=== PATIENT | female | born 1970 | race American Indian/Alaskan Native ===

== ENCOUNTER 2017-01-30 02:56 | Inpatient (IN) | payer OTHER ==
[2017-01-30] MEDS ORDERED: LASIX IV ONE (03:08)
[2017-01-30 03:54] LABS: Mean Corpuscular HGB Conc 31 % (30-34); Mean Corpuscular Volume 75 fl (79-97); Platelet Count 610 K/mm3 (140-440); Red Blood Count 5.14 M/mm3 (3.65-5.03)
[2017-01-30] MEDS ORDERED: TRIDIL DRIP 50MG/250ML 50 MG/250 ML BOTTLE IV SCH (04:00)
[2017-01-30 04:06] LABS: INR 0.93 (0.87-1.13)
[2017-01-30 04:07] LABS: Partial Thromboplastin Time 26.9 Sec. (24.2-36.6)
[2017-01-30 04:15] LABS: Creatine Kinase MB 2.2 ng/mL (0.0-4.0)
[2017-01-30 04:17] LABS: Hematocrit 38.6 % (30.3-42.9); Hemoglobin 11.8 gm/dl (10.1-14.3); Mean Corpuscular Hemoglobin 23 pg (28-32); White Blood Count 20.3 K/mm3 (4.5-11.0)
[2017-01-30 04:18] LABS: Creatine Kinase 147 units/L (30-135)
[2017-01-30 04:21] LABS: Creatine Kinase MB 2.3 ng/mL (0.0-4.0)
[2017-01-30 04:24] LABS: Alanine Aminotransferase 12 units/L (7-56); Albumin 3.6 g/dL (3.9-5); Albumin/Globulin Ratio 0.9 %; Alkaline Phosphatase 96 units/L (35-129); Anion Gap 24 mmol/L; BUN/Creatinine Ratio 9.37; Blood Urea Nitrogen 15 mg/dL (7-17); Calcium 8.2 mg/dL (8.4-10.2); Carbon Dioxide 21 mmol/L (22-30); Chloride 95.9 mmol/L (98-107); Creatine Kinase 151 units/L (30-135); Glucose 393 mg/dL (65-100); Potassium 3.6 mmol/L (3.6-5.0); Sodium 137 mmol/L (137-145); Total Protein 7.6 g/dL (6.3-8.2)
[2017-01-30] MEDS ORDERED: ROCEPHIN/NS 1 GM/50 ML 1 GM/50 ML BAG IV ONE (04:33)
[2017-01-30] MEDS ORDERED: ZITHROMAX 500 MG in NACL 0.9% 250ML 250 ML IV ONE (04:33)
--- NOTE | 2017-01-30 04:40 | Emergency Department Report ---
ED Shortness of Breath HPI - General Chief Complaint: Dyspnea/Respdistress Stated Complaint: NATALI Time Seen by Provider: 01/30/17 03:08 Source: EMS, old records reviewed (no previous cardiac record for review) Mode of arrival: Stretcher Limitations: Physical Limitation - History of Present Illness Initial Comments: 46-year-old female with a past medical history hypertension presents to the hospital with acute respiratory distress. Patient is severely dyspneic and unable to provide any history of present illness. Janee at the bedside states that patient seemed to be fine throughout the day and shortness of breath acutely worsened at 1 AM. EMS provided some little oxygen and slight measure prior to evaluation. Patient complains of chest discomfort when questioned. No further history of present illness febrile at this time. No previous medical [facility] in [facility] available for review regarding previous cardiac history. Patient takes Lasix however, Janee denies history of CHF but states she had a similar episode to this in the past. - Related Data Home Medications Medication Instructions Recorded Confirmed Last Taken Carvedilol [Coreg] 25 mg PO BID 01/30/17 01/30/17 01/29/17 Furosemide [Lasix TAB] 40 mg PO QDAY 01/30/17 01/30/17 01/29/17 Ibuprofen [Motrin] 800 mg PO Q8HR PRN 01/30/17 01/30/17 01/29/17 cloNIDine [Catapres] 0.1 mg PO TID 01/30/17 01/30/17 01/29/17 Allergies Allergy/AdvReac Type Severity Reaction Status Date / Time No Known Drug Allergies Allergy Unknown Unknown Verified 01/30/17 03:40 ED Review of Systems ROS: Stated complaint: NATALI Other details as noted in HPI Comment: Unobtainable due to pts medical conditions ED Past Medical Hx - Past Medical History Previous Medical History?: Yes Hx Hypertension: Yes Hx COPD: Yes - Social History Smoking Status: Unknown if ever smoked - Medications Home Medications: Home Medications Medication Instructions Recorded Confirmed Last Taken Type Carvedilol [Coreg] 25 mg PO BID 01/30/17 01/30/17 01/29/17 History Furosemide [Lasix TAB] 40 mg PO QDAY 01/30/17 01/30/17 01/29/17 History Ibuprofen [Motrin] 800 mg PO Q8HR PRN 01/30/17 01/30/17 01/29/17 History cloNIDine [Catapres] 0.1 mg PO TID 01/30/17 01/30/17 01/29/17 History ED Physical Exam - General Limitations: Physical Limitation - Other Other exam information: General: Limited by acute respiratory distress Head exam: Atraumatic, normocephalic Eyes exam: Normal appearance ENT: Moist mucous membrane Neck exam: Normal inspection, full range of motion Respiratory exam: Bilateral rales, tachypnea, positive accessory muscle use Cardiovascular: Tachycardic regular rhythm Abdomen: Soft, nondistended, and nontender, with normal bowel sounds, no rebound, or guarding Extremity: Full range of motion normal inspection no deformity, no lower extremity edema Back: Normal Inspection, full range of motion, no tenderness Neurologic: Alert, oriented x3, cranial nerves intact, no motor or sensory deficit Psychiatric: normal affect, normal mood Skin: Diaphoretic ED Course Vital Signs 01/30/17 01/30/17 01/30/17 03:03 03:09 03:13 Temperature 97.1 F L 97.1 F L Pulse Rate 118 H 125 H 125 H Respiratory 29 H 28 H 28 H Rate Blood Pressure 202/132 228/144 Blood Pressure 228/144 [Left] O2 Sat by Pulse 98 92 92 Oximetry 01/30/17 04:11 Temperature Pulse Rate 105 H Respiratory 32 H Rate Blood Pressure Blood Pressure 145/93 [Left] O2 Sat by Pulse 95 Oximetry - Reevaluation(s) Reevaluation #1: 01/30/17 04:47 Patient placed on BiPAP upon arrival. Nitroglycerin initiated to improve blood pressure. Lasix 80 IV ordered. Patient is improving with ED treatment. Blood cultures Rocephin and azithromycin ordered given significant leukocytosis which can also be due to a stress reaction ED Medical Decision Making - Lab Data Result diagrams: 01/30/17 03:10 01/30/17 03:10 Lab Results 01/30/17 01/30/17 01/30/17 Range/Units 03:10 03:10 03:10 WBC 20.3 H (4.5-11.0) K/mm3 RBC 5.14 H (3.65-5.03) M/mm3 Hgb 11.8 (10.1-14.3) gm/dl Hct 38.6 (30.3-42.9) % MCV 75 L (79-97) fl MCH 23 L (28-32) pg MCHC 31 (30-34) % RDW 18.0 H (13.2-15.2) % Plt Count 610 H (140-440) K/mm3 Lymph # Do All Operator PT 12.4 (12.2-14.9) Sec. INR 0.93 (0.87-1.13) APTT 26.9 (24.2-36.6) Sec. Sodium (137-145) mmol/L Potassium (3.6-5.0) mmol/L Chloride (98-107) mmol/L Carbon Dioxide (22-30) mmol/L Anion Gap mmol/L BUN (7-17) mg/dL Creatinine (0.7-1.2) mg/dL Estimated GFR ml/min BUN/Creatinine Ratio % Glucose (65-100) mg/dL Calcium (8.4-10.2) mg/dL Total Bilirubin (0.1-1.2) mg/dL AST (5-40) units/L ALT (7-56) units/L Alkaline Phosphatase (35-129) units/L Total Creatine Kinase 147 H (30-135) units/L CK-MB (CK-2) 2.2 (0.0-4.0) ng/mL CK-MB (CK-2) Rel Index 1.4 (0-4) Troponin T < 0.010 (0.00-0.029) ng/mL NT-Pro-B Natriuret Pep (0-450) pg/mL Total Protein (6.3-8.2) g/dL Albumin (3.9-5) g/dL Albumin/Globulin Ratio % 01/30/17 Range/Units 03:10 WBC (4.5-11.0) K/mm3 RBC (3.65-5.03) M/mm3 Hgb (10.1-14.3) gm/dl Hct (30.3-42.9) % MCV (79-97) fl MCH (28-32) pg MCHC (30-34) % RDW (13.2-15.2) % Plt Count (140-440) K/mm3 Lymph # PT (12.2-14.9) Sec. INR (0.87-1.13) APTT (24.2-36.6) Sec. Sodium 137 (137-145) mmol/L Potassium 3.6 (3.6-5.0) mmol/L Chloride 95.9 L (98-107) mmol/L Carbon Dioxide 21 L (22-30) mmol/L Anion Gap 24 mmol/L BUN 15 (7-17) mg/dL Creatinine 1.6 H (0.7-1.2) mg/dL Estimated GFR 42 ml/min BUN/Creatinine Ratio 9.37 % Glucose 393 H (65-100) mg/dL Calcium 8.2 L (8.4-10.2) mg/dL Total Bilirubin 0.20 (0.1-1.2) mg/dL AST 20 (5-40) units/L ALT 12 (7-56) units/L Alkaline Phosphatase 96 (35-129) units/L Total Creatine Kinase 151 H (30-135) units/L CK-MB (CK-2) 2.3 (0.0-4.0) ng/mL CK-MB (CK-2) Rel Index 1.5 (0-4) Troponin T < 0.010 (0.00-0.029) ng/mL NT-Pro-B Natriuret Pep 847.2 H (0-450) pg/mL Total Protein 7.6 (6.3-8.2) g/dL Albumin 3.6 L (3.9-5) g/dL Albumin/Globulin Ratio 0.9 % - EKG Data -: EKG Interpreted by Me (sinus tach [address] abnormality) - EKG Data When compared to previous EKG there are: previous EKG unavailable - Radiology Data Radiology results: image reviewed (chest x-ray: Pulmonary edema) - Medical Decision Making No signs of ST elevation NV. Initial troponin is negative. Patient has clinical, laboratory, chest x-ray findings of pulmonary edema. Patient is improving with treatment including BiPAP. She requires hospital physician to the ICU for further treatment and support. - Differential Diagnosis pulmonary edema, pneumonia, CHF, asthma, bronchitis, NV, stable angina Critical Care Time: No Critical care attestation.: If time is entered above; I have spent that time in minutes in the direct care of this critically ill patient, excluding procedure time. ED Disposition Clinical Impression: Pulmonary edema, Respiratory distress, Leukocytosis, Hypertensive emergency, Renal insufficiency, Thrombocytosis Disposition: OP ADMITTED IP TO THIS HOSP Is pt being admited?: Yes Condition: Stable Time of Disposition: 04:43 (Dr Barker/hosp)
[2017-01-30 05:20] LABS: Basophils % (Manual) 0 % (0.0-1.8); Blastocytes % (Manual) 0 %
[2017-01-30 05:21] LABS: Anisocytosis 1+; Diff Status Complete; Elliptocytes Few; Hypochromasia 1+; Platelet Estimate Consistent w Auto
[2017-01-30] MEDS ORDERED: DULCOLAX PR PRN (05:34)
--- NOTE | 2017-01-30 05:39 | History and Physical Report ---
History of Present Illness Date of examination: 01/30/17 History of present illness: 46-year-old woman with history of hypertension, noncompliant with medication comes to this comes emergency room with acute onset of shortness of breath. Patient was found to be in respiratory distress, she arrived on BiPAP and was started on a nitroglycerin drip and given IV Lasix. Also complaining of chest pain in the epigastric area which she describes a pressure-like sensation, constant, intensity 6/10, no radiation, she cannot identify exacerbating or relieving factors. She denies nausea vomiting, diaphoresis or palpitation Patient denies cough, abdominal pain, hematochezia, dysuria, frequency, focal weakness, dysarthria, fever chills, polydipsia polyuria, hot or cold intolerance , easy bruisability, or rash or bleeding from mucosal membrane, rhinorrhea, epistaxis, earache, tinnitus, blurry vision, eye discharge, anxiety, depression. Other review of systems negative PAST SURGICAL HISTORY: Tubal ligation SOCIAL HISTORY: Denies alcohol, tobacco, drugs FAMILY HISTORY: Hypertension Medications and Allergies Allergies Allergy/AdvReac Type Severity Reaction Status Date / Time No Known Drug Allergies Allergy Unknown Unknown Verified 01/30/17 03:40 Home Medications Medication Instructions Recorded Confirmed Last Taken Type Carvedilol [Coreg] 25 mg PO BID 01/30/17 01/30/17 01/29/17 History Furosemide [Lasix TAB] 40 mg PO QDAY 01/30/17 01/30/17 01/29/17 History Ibuprofen [Motrin] 800 mg PO Q8HR PRN 01/30/17 01/30/17 01/29/17 History cloNIDine [Catapres] 0.1 mg PO TID 01/30/17 01/30/17 01/29/17 History Active Meds: Active Medications Nitroglycerin/Dextrose (Tridil Drip 50mg/250ml) 50 mg in 250 mls @ 3 mls/hr IV TITR MARIA EUGENIA; 10 MCG/MIN PRN Reason: Protocol Last Admin: 01/30/17 03:42 Dose: 10 mcg/min, 3 mls/hr Exam - Physical Exam Narrative exam: Gen. appearance: Patient lying in bed, no apparent distress HEENT: Normocephalic, atraumatic, pupils equally round and reactive to light, extraocular movement intact, and no sclericterus,. No JVD or thyromegaly or nodule,neck supple, no carotid bruit ,mucous membranes moist, no exudate or erythema Heart: S1, S2, regular rate and rhythm Lungs: Crackles bilaterally, breathing comfortable Abdomen: Positive bowel sounds, nontender, nondistended, no organomegaly Extremity: No edema, cyanosis, clubbing Skin: No rash, nodules, warm, dry Neuro: Oriented 3, cranial nerves II-12 intact, speech is fluent, motor and sensory intact - Constitutional Vitals: Temp Pulse Resp BP Pulse Ox 97.1 F L 99 H 28 H 132/92 97 01/30/17 03:13 01/30/17 04:50 01/30/17 04:50 01/30/17 04:50 01/30/17 04:50 Results - Labs CBC & Chem 7: 01/31/17 06:38 01/30/17 03:10 Labs: Abnormal lab results 01/30/17 01/30/17 01/30/17 Range/Units 03:10 03:10 03:10 WBC 20.3 H (4.5-11.0) K/mm3 RBC 5.14 H (3.65-5.03) M/mm3 MCV 75 L (79-97) fl MCH 23 L (28-32) pg RDW 18.0 H (13.2-15.2) % Plt Count 610 H (140-440) K/mm3 Monocytes % (Manual) 9.0 H (0.0-7.3) % Seg Neutrophils # Man 10.8 H (1.8-7.7) K/mm3 Monocytes # (Manual) 1.8 H (0.0-0.8) K/mm3 Eosinophils # (Manual) 0.8 H (0.0-0.4) K/mm3 Chloride 95.9 L (98-107) mmol/L Carbon Dioxide 21 L (22-30) mmol/L Creatinine 1.6 H (0.7-1.2) mg/dL Glucose 393 H (65-100) mg/dL Calcium 8.2 L (8.4-10.2) mg/dL Total Creatine Kinase 147 H 151 H (30-135) units/L NT-Pro-B Natriuret Pep 847.2 H (0-450) pg/mL Albumin 3.6 L (3.9-5) g/dL - Imaging and Cardiology EKG: image reviewed Chest x-ray: image reviewed Assessment and Plan Respiratory area distress CHF exacerbation, probably diastolic,new onset vs secondary to hypertension malignant Hypertension urgency malignant pneumonia Admits medicine Continue nitroglycerin drip, continue BiPAP Start IV Lasix, aspirin, check cardiac enzymes, echo, consult cardiology Hold beta kat, CARI inhibitor since patient on nitroglycerin drip Consult critical care, start DVT prophylaxis Start IV Levaquin Obtain stress test when respiratory status is stable
[2017-01-30] MEDS ORDERED: LEVAQUIN 750MG/150ML 750 MG/150 ML BAG IV SCH (06:00)
[2017-01-30] MEDS: LASIX IV SCH ×2 (06:03→17:54)
[2017-01-30 06:32] LABS: Creatine Kinase MB 3.9 ng/mL (0.0-4.0)
--- NOTE | 2017-01-30 07:09 | Admit Criteria Form ---
Admission Criteria Documentation: RESPIRATORY FAILURE GRG Clinical Indications for Admission to Inpatient Care (Place 'X' for any and all applicable criteria): Hospital admission is needed for appropriate care of the patient because of acute respiratory failure or insufficiency as indicated by ANY ONE of the following(1)(2)(3)(4)(5)(6)(7)(8): [X ]I. Mechanical ventilation needed (acute invasive or noninvasive) [ ]II. Severe ventilation deficit as indicated by ANY ONE of the following (9) [ ]a) Respiratory acidosis (pH less than 7.32 and partial pressure of carbon dioxide greater than 40 mm Hg (5.3 kPa)) [ ]b) Partial pressure of carbon dioxide greater than 44 mm Hg (5.9 kPa ) (new) [ ]c) Airflow measurements less than 25% of predicted (eg, peak expiratory flow rate less than 100 L/minute) [ ]d) Forced vital capacity less than 15 mL/kg of ideal body weight, or 50% decrease in vital capacity from baseline [ ]III. Noncardiac pulmonary edema not resolving with rapid emergency treatment (8) [ ]IV. Severe respiratory distress as indicated by ANY ONE of the following: [ ]a) Severe tachypnea (respiratory rate greater than 30, greater than 45 for 6-month-old, greater than 60 for ) [ ]b) Severe hypoxemia (partial pressure of oxygen less than 50 mm Hg ( 6.7 kPa) on greater than 50% oxygen or partial pressure of oxygen to FIO2 ratio less than 200) [ ]c) Mental status deterioration from respiratory disease [ ]V. Airway obstruction or inadequate protection [A](10)(11) The original [employer] content created by [employer] has been revised. The portions of the content which have been revised are identified through the use of italic text or in bold, and [employer] has neither reviewed nor approved the modified material. All other unmodified content is copyright [employer]. Please see references footnoted in the original [employer] edition 2016 Admission Criteria Met: Yes
--- NOTE | 2017-01-30 07:29 | XRay Report ---
Single view chest: History: Shortness of breath. Findings: Heart size upper limit of normal. Borderline cardiomegaly cannot be excluded. Trachea is midline. Bilateral airspace opacities. Normal CP angles. Impression: Pulmonary edema or bilateral diffuse pneumonia
--- NOTE | 2017-01-30 08:40 | Event Note ---
Date: 01/30/17 46-year-old female patient with significant past medical history of hypertension noncompliant with medications was admitted through emergency room this morning with the worsening shortness of breath, acute respiratory failure requiring BiPAP Patient was noted to have malignant hypertension, started on Tridil drip which was later discontinued Patient had mild elevation of troponins, cardiology evaluated the patient, started on heparin drip Multiple antihypertensives were added Medical records reviewed Agree with the current plan Patient's condition treatment plan discussed in detail with the patient and multiple family members at the bedside as well as the nurse Consults and recommendations noted and appreciated
[2017-01-30] MEDS ORDERED: APRESOLINE IV PRN (09:01)
[2017-01-30] MEDS ORDERED: APRESOLINE PO ONE (09:01)
[2017-01-30] MEDS: ASPIRIN PO SCH (09:30)
[2017-01-30] MEDS ORDERED: LOPRESSOR ONE (09:32)
[2017-01-30] MEDS ORDERED: LOVENOX SUB-Q SCH (10:00)
[2017-01-30] MEDS ORDERED: LOPRESSOR PO SCH (10:00)
--- NOTE | 2017-01-30 10:29 | Event Note ---
Date: 01/30/17 Cardiology no dictated #1. Congestive heart failure #2 leukocytosis and elevated troponins #3 uncontrolled hypertension #4 respiratory failure on BiPAP #5 noncompliance Patient will be monitored and followed closely Thank you Dr. JOSE ALFREDO Martínez
[2017-01-30] MEDS ORDERED: HEPARIN/ 0.45% NACL-25,000 UNIT/500 ML 25,000 UNIT/500 ML BAG IV SCH (13:00)
[2017-01-30] MEDS: CATAPRES PO SCH ×2 (14:54→20:36)
[2017-01-30] MEDS: APRESOLINE PO SCH ×2 (14:54→22:04)
[2017-01-30 14:56] LABS: Creatine Kinase MB 4.7 ng/mL (0.0-4.0)
[2017-01-30 17:34] LABS: Hematocrit 33.7 % (30.3-42.9); Hemoglobin 10.5 gm/dl (10.1-14.3)
[2017-01-30] MEDS: ZOFRAN IV PRN (17:55)
[2017-01-30 18:19] LABS: INR 1.02 (0.87-1.13)
[2017-01-30 18:20] LABS: Partial Thromboplastin Time 32.8 Sec. (24.2-36.6)
[2017-01-30] MEDS: TYLENOL PO PRN (20:36)
[2017-01-30] MEDS: COREG PO SCH (22:04)
--- NOTE | 2017-01-31 00:05 | Consultation ---
CARDIOLOGY CONSULTATION AGE: 46 REFERRING PHYSICIAN: Mercedes Melendez MD HISTORY OF PRESENT ILLNESS: The patient is a 46-year-old female who is known to have hypertension and has been noncompliant with medications, came to the Emergency Room with acute shortness of breath. Apparently for the last 3-4 days, she has been getting worse and yesterday, this was much worse and hence she came to the Emergency Room. The patient was given BiPAP, oxygen and has been placed on nitroglycerin drip. The patient received IV Lasix. This morning, she feels some better. She is still on BiPAP at this time and difficult to communicate with her. The patient at present denies any chest pain. About a year ago, she had a similar episode. The patient denies history of smoking or excessive alcohol consumption or drug consumption. REVIEW OF SYSTEMS: Difficult to obtain. HEAD, EYES, EARS, NOSE, AND THROAT: No symptoms. ENDOCRINE: No history of diabetes. GASTROINTESTINAL: No abdominal pain, nausea, or vomiting. Bowel habits have been regular. No history of peptic ulcer disease. GENITOURINARY: No symptoms. CENTRAL NERVOUS SYSTEM: No symptoms. PERSONAL HISTORY: Nonsmoker, nonalcoholic. PHYSICAL EXAMINATION: GENERAL: Adult female appears to be comfortable at this time. VITAL SIGNS: Blood pressure is 170/115. HEENT: The patient has a BiPAP mask. NECK: Supple. No thyromegaly. Both carotids are palpable and equal. No bruits. CHEST: Symmetrical, bilateral basilar rales are present. CARDIOVASCULAR: S1 and S2 are heard well. No significant murmurs are appreciated. ABDOMEN: Soft, nontender. EXTREMITIES: No calf tenderness. LABORATORY DATA: EKG: Sinus tachycardia, left ventricular hypertrophy with nonspecific ST abnormalities. Chest x-ray: Congestive heart failure. WBC 20.3, hemoglobin 11.8, hematocrit 38.6. Sodium 137, potassium 3.6, BUN 15, creatinine 1.6, troponin 0.010, and 0.139. Total cholesterol 214, LDL 126. IMPRESSION: 1. Congestive heart failure. 2. Severe uncontrolled hypertension. 3. Abnormal troponins. The patient denies any chest pain at this time even though she may have reported chest discomfort earlier. 4. Medication noncompliance. The patient is seen for cardiac evaluation. The patient seems to be responding to the treatment except the blood pressure is still not controlled. Additional hydralazine and metoprolol were given. The patient will be monitored and followed closely with you. Leukocytosis is also bothersome. Etiology of this is uncertain. Thank you, Dr. Melendez for allowing me to participate in the care of this patient. Continue current management. JOB# [id number] KB/NTS
[2017-01-31] MEDS: APRESOLINE PO SCH ×3 (06:11→22:13)
[2017-01-31] MEDS: LASIX IV SCH (06:12)
[2017-01-31 06:56] LABS: Hematocrit 30.6 % (30.3-42.9); Hemoglobin 9.6 gm/dl (10.1-14.3); Mean Corpuscular HGB Conc 31 % (30-34); Mean Corpuscular Volume 73 fl (79-97); Platelet Count 368 K/mm3 (140-440); Red Blood Count 4.17 M/mm3 (3.65-5.03); Red Cell Distribution Width 18.6 % (13.2-15.2)
[2017-01-31 06:58] LABS: Mean Corpuscular Hemoglobin 23 pg (28-32); White Blood Count 26.5 K/mm3 (4.5-11.0)
[2017-01-31 07:15] LABS: BUN/Creatinine Ratio 11.17; Calcium 8.3 mg/dL (8.4-10.2); Chloride 96.5 mmol/L (98-107); Potassium 3.3 mmol/L (3.6-5.0)
[2017-01-31 08:26] LABS: Anisocytosis 1+; Blastocytes % (Manual) 0 %; Burr Cells Few; Diff Status Complete; Elliptocytes Few; Hypochromasia 1+; Ovalocytes Few; Platelet Estimate Consistent w Auto
[2017-01-31] MEDS ORDERED: LEVAQUIN 750MG/150ML 750 MG/150 ML BAG IV SCH (10:00)
[2017-01-31] MEDS ORDERED: LASIX PO SCH (10:00)
--- NOTE | 2017-01-31 11:01 | Progress Note ---
Hospitalist Physical - Constitutional Vitals: Temp Pulse Resp BP Pulse Ox 98.1 F 82 16 139/83 99 01/31/17 10:14 01/31/17 10:14 01/31/17 10:14 01/31/17 10:14 01/31/17 10:14 Results - Labs CBC & Chem 7: 01/31/17 06:38 01/31/17 06:38 Labs: Laboratory Last Values WBC 26.5 K/mm3 (4.5-11.0) H 01/31/17 06:38 RBC 4.17 M/mm3 (3.65-5.03) 01/31/17 06:38 Hgb 9.6 gm/dl (10.1-14.3) L 01/31/17 06:38 Hct 30.6 % (30.3-42.9) 01/31/17 06:38 MCV 73 fl (79-97) L 01/31/17 06:38 MCH 23 pg (28-32) L 01/31/17 06:38 MCHC 31 % (30-34) 01/31/17 06:38 RDW 18.6 % (13.2-15.2) H 01/31/17 06:38 Plt Count 368 K/mm3 (140-440) 01/31/17 06:38 Lymph # Brand Communications Manager 01/30/17 03:10 Add Manual Diff Complete 01/31/17 06:38 Total Counted 100 01/31/17 06:38 Seg Neuts % (Manual) 73.0 % (40.0-70.0) H 01/31/17 06:38 Band Neutrophils % 7.0 % 01/31/17 06:38 Lymphocytes % (Manual) 12.0 % (13.4-35.0) L 01/31/17 06:38 Reactive Lymphs % (Man) 0 % 01/31/17 06:38 Monocytes % (Manual) 7.0 % (0.0-7.3) 01/31/17 06:38 Eosinophils % (Manual) 4.0 % (0.0-4.3) 01/30/17 03:10 Basophils % (Manual) 0 % (0.0-1.8) 01/30/17 03:10 Metamyelocytes % 1.0 % 01/31/17 06:38 Myelocytes % 0 % 01/31/17 06:38 Promyelocytes % 0 % 01/31/17 06:38 Blast Cells % 0 % 01/31/17 06:38 Nucleated RBC % Not Reportable 01/31/17 06:38 Seg Neutrophils # Man 19.3 K/mm3 (1.8-7.7) H 01/31/17 06:38 Band Neutrophils # 1.9 K/mm3 01/31/17 06:38 Lymphocytes # (Manual) 3.2 K/mm3 (1.2-5.4) 01/31/17 06:38 Abs React Lymphs (Man) 0.0 K/mm3 01/31/17 06:38 Monocytes # (Manual) 1.9 K/mm3 (0.0-0.8) H 01/31/17 06:38 Eosinophils # (Manual) 0.0 K/mm3 (0.0-0.4) 01/31/17 06:38 Basophils # (Manual) 0.0 K/mm3 (0.0-0.1) 01/31/17 06:38 Metamyelocytes # 0.3 K/mm3 01/31/17 06:38 Myelocytes # 0.0 K/mm3 01/31/17 06:38 Promyelocytes # 0.0 K/mm3 01/31/17 06:38 Blast Cells # 0.0 K/mm3 01/31/17 06:38 WBC Morphology Not Reportable 01/31/17 06:38 Hypersegmented Neuts Not Reportable 01/31/17 06:38 Hyposegmented Neuts Not Reportable 01/31/17 06:38 Hypogranular Neuts Not Reportable 01/31/17 06:38 Smudge Cells Not Reportable 01/31/17 06:38 Toxic Granulation Not Reportable 01/31/17 06:38 Toxic Vacuolation Not Reportable 01/31/17 06:38 Dohle Bodies Not Reportable 01/31/17 06:38 Pelger-Huet Anomaly Not Reportable 01/31/17 06:38 Doreen Rods Not Reportable 01/31/17 06:38 Platelet Estimate Consistent w auto 01/31/17 06:38 Clumped Platelets Not Reportable 01/31/17 06:38 Plt Clumps, EDTA Not Reportable 01/31/17 06:38 Large Platelets Not Reportable 01/31/17 06:38 Giant Platelets Not Reportable 01/31/17 06:38 Platelet Satelliting Not Reportable 01/31/17 06:38 Plt Morphology Comment Not Reportable 01/31/17 06:38 RBC Morphology Not Reportable 01/31/17 06:38 Dimorphic RBCs Not Reportable 01/31/17 06:38 Polychromasia Not Reportable 01/31/17 06:38 Hypochromasia 1+ 01/31/17 06:38 Poikilocytosis Not Reportable 01/31/17 06:38 Anisocytosis 1+ 01/31/17 06:38 Microcytosis Not Reportable 01/31/17 06:38 Macrocytosis Not Reportable 01/31/17 06:38 Spherocytes Not Reportable 01/31/17 06:38 Pappenheimer Bodies Not Reportable 01/31/17 06:38 Sickle Cells Not Reportable 01/31/17 06:38 Target Cells Not Reportable 01/31/17 06:38 Tear Drop Cells Not Reportable 01/31/17 06:38 Ovalocytes Few 01/31/17 06:38 Helmet Cells Not Reportable 01/31/17 06:38 [place] Bodies Not Reportable 01/31/17 06:38 [place] Rings Not Reportable 01/31/17 06:38 [place] Cells Few 01/31/17 06:38 Bite Cells Not Reportable 01/31/17 06:38 Crenated Cell Not Reportable 01/31/17 06:38 Elliptocytes Few 01/31/17 06:38 Acanthocytes (Spur) Not Reportable 01/31/17 06:38 Rouleaux Not Reportable 01/31/17 06:38 Hemoglobin C Crystals Not Reportable 01/31/17 06:38 Schistocytes Not Reportable 01/31/17 06:38 Malaria parasites Not Reportable 01/31/17 06:38 Franky Bodies Not Reportable 01/31/17 06:38 Hem Pathologist Commnt No 01/31/17 06:38 PT 13.3 Sec. (12.2-14.9) 01/30/17 13:31 INR 1.02 (0.87-1.13) 01/30/17 13:31 APTT 32.8 Sec. (24.2-36.6) 01/30/17 13:31 Heparin Anti-Xa Level 0.47 U.I./ml (0.3-0.7) 01/30/17 21:42 Sodium 139 mmol/L (137-145) 01/31/17 06:38 Potassium 3.3 mmol/L (3.6-5.0) L 01/31/17 06:38 Chloride 96.5 mmol/L (98-107) L 01/31/17 06:38 Carbon Dioxide 21 mmol/L (22-30) L 01/31/17 06:38 Anion Gap 25 mmol/L 01/31/17 06:38 BUN 38 mg/dL (7-17) H 01/31/17 06:38 Creatinine 3.4 mg/dL (0.7-1.2) H D 01/31/17 06:38 Estimated GFR 18 ml/min 01/31/17 06:38 BUN/Creatinine Ratio 11.17 % 01/31/17 06:38 Glucose 127 mg/dL (65-100) H 01/31/17 06:38 Calcium 8.3 mg/dL (8.4-10.2) L 01/31/17 06:38 Total Bilirubin 0.20 mg/dL (0.1-1.2) 01/30/17 03:10 AST 20 units/L (5-40) 01/30/17 03:10 ALT 12 units/L (7-56) 01/30/17 03:10 Alkaline Phosphatase 96 units/L (35-129) 01/30/17 03:10 Total Creatine Kinase 160 units/L (30-135) H 01/30/17 13:31 CK-MB (CK-2) 4.7 ng/mL (0.0-4.0) H 01/30/17 13:31 CK-MB (CK-2) Rel Index 2.9 (0-4) 01/30/17 13:31 Troponin T 0.080 ng/mL (0.00-0.029) H D 01/30/17 13:31 NT-Pro-B Natriuret Pep 847.2 pg/mL (0-450) H 01/30/17 03:10 Total Protein 7.6 g/dL (6.3-8.2) 01/30/17 03:10 Albumin 3.6 g/dL (3.9-5) L 01/30/17 03:10 Albumin/Globulin Ratio 0.9 % 01/30/17 03:10 Triglycerides 242 mg/dL (2-149) H 01/30/17 05:59 Cholesterol 214 mg/dL (50-199) H 01/30/17 05:59 LDL Cholesterol Direct 126 mg/dL (50-130) 01/30/17 05:59 HDL Cholesterol 40 mg/dL (40-59) 01/30/17 05:59 Cholesterol/HDL Ratio 5.35 % 01/30/17 05:59
--- NOTE | 2017-01-31 12:04 | Progress Note ---
Assessment and Plan 46yo aaf: 1. flash pulm edema due to hypertensive crisis * now improved 2. mildly elevated trop w/ nl ck * likely due to #1 3. nichole * likely due to #1 4. mild to mod mitral regurgitation rec: hold lasix gentle ivf cont asa agree with nephrology consult cont iv heparin for now but I don't believe this is consistent with acs tte reviewed d/w with pt and primary md - Patient Problems (1) Hypertensive emergency Current Visit: Yes Status: Acute (2) Pulmonary edema Current Visit: Yes Status: Acute Qualifiers: Chronicity: C (3) Renal insufficiency Current Visit: Yes Status: Acute Subjective Date of service: 01/31/17 Interval history: feels much better, no sob/cp Objective Vital Signs Temp Pulse Pulse Pulse Resp Resp BP 01/31/17 10:14 98.1 F 82 16 01/31/17 09:16 89 01/31/17 06:11 91 H 106/75 01/31/17 05:27 98.0 F 91 H 20 01/31/17 00:42 98.3 F 91 H 20 01/30/17 23:27 82 18 01/30/17 22:04 90 146/82 01/30/17 21:36 20 01/30/17 20:52 80 20 01/30/17 20:50 20 01/30/17 20:36 98.1 F 95 H 97 H 20 173/91 01/30/17 19:17 90 01/30/17 16:30 98.0 F 99 H 20 01/30/17 12:36 BP BP Pulse Ox 01/31/17 10:14 139/83 99 01/31/17 09:16 01/31/17 06:11 01/31/17 05:27 106/75 100 01/31/17 00:42 136/85 100 01/30/17 23:27 99 01/30/17 22:04 01/30/17 21:36 01/30/17 20:52 99 01/30/17 20:50 01/30/17 20:36 173/92 20 L 01/30/17 19:17 01/30/17 16:30 162/93 99 01/30/17 12:36 100 - Labs and Meds Cardiac Enzymes 01/30/17 Range/Units 13:31 CK-MB (CK-2) 4.7 H (0.0-4.0) ng/mL Coagulation 01/30/17 Range/Units 13:31 PT 13.3 (12.2-14.9) Sec. INR 1.02 (0.87-1.13) APTT 32.8 (24.2-36.6) Sec. CBC 01/30/17 01/31/17 Range/Units 13:31 06:38 WBC 26.5 H (4.5-11.0) K/mm3 RBC 4.17 (3.65-5.03) M/mm3 Hgb 10.5 9.6 L (10.1-14.3) gm/dl Hct 33.7 30.6 (30.3-42.9) % Plt Count 393 368 (140-440) K/mm3 Comprehensive Metabolic Panel 01/31/17 Range/Units 06:38 Sodium 139 (137-145) mmol/L Potassium 3.3 L (3.6-5.0) mmol/L Chloride 96.5 L (98-107) mmol/L Carbon Dioxide 21 L (22-30) mmol/L BUN 38 H (7-17) mg/dL Creatinine 3.4 H D (0.7-1.2) mg/dL Glucose 127 H (65-100) mg/dL Calcium 8.3 L (8.4-10.2) mg/dL - Imaging and Cardiology EKG: image reviewed
[2017-01-31] MEDS: CATAPRES PO SCH ×3 (12:16→20:28)
[2017-01-31] MEDS: COREG PO SCH ×2 (12:16→22:13)
[2017-01-31] MEDS: ASPIRIN PO SCH (12:16)
[2017-01-31] MEDS: TYLENOL PO PRN (12:28)
[2017-01-31] MEDS ORDERED: NACL 0.9% 1000 ML 1,000 ML IV SCH (13:00)
--- NOTE | 2017-01-31 13:13 | Consultation ---
History of Present Illness - Reason for Consult Consult date: 01/31/17 acute renal failure Requesting physician: RU TOLEDO - History of Present Illness This is a 46yo AAF with history of hypertension diagnosed more than 15 years ago , noncompliant with medication who initially presented to ER with acute onset of shortness of breath. Patient was found to be in respiratory distress, she arrived on BiPAP and was started on a nitroglycerin drip and given IV Lasix. Pt was found to be in hypertensive emergency with BP >220/110mmHg and was initially started on Tridil drip which was later discontinued. currently with improved BP on oral meds. Patient also had mild elevation of troponins, cardiology evaluated the patient, started on heparin drip. initial Cr was 1.6mg/ dl on admission, no previous labs available, however renal function is worsening with Cr up to 3.4mg/dl, renal consult requested for management of SABRA. Pt denies fever, chills, nausea, vomiting, diarrhea, dysuria, recent NSADIs use , IV contrast exposure, Past History Past Medical History: hypertension Past Surgical History: No surgical history Social history: no significant social history Family history: diabetes (mother ), hypertension (father) Medications and Allergies Allergies Allergy/AdvReac Type Severity Reaction Status Date / Time No Known Drug Allergies Allergy Unknown Unknown Verified 01/30/17 03:40 Home Medications Medication Instructions Recorded Confirmed Last Taken Type Carvedilol [Coreg] 25 mg PO BID 01/30/17 01/30/17 01/29/17 History Furosemide [Lasix TAB] 40 mg PO QDAY 01/30/17 01/30/17 01/29/17 History Ibuprofen [Motrin] 800 mg PO Q8HR PRN 01/30/17 01/30/17 01/29/17 History cloNIDine [Catapres] 0.1 mg PO TID 01/30/17 01/30/17 01/29/17 History Active Meds: Active Medications Acetaminophen (Tylenol) 650 mg PO Q4H PRN PRN Reason: Pain MILD(1-3)/Fever >100.5/GARCIAS Last Admin: 01/31/17 12:28 Dose: 650 mg Aspirin (Aspirin) 325 mg PO QDAY MARIA EUGENIA Last Admin: 01/31/17 12:16 Dose: 325 mg Bisacodyl (Dulcolax) 10 mg [place] QDAY PRN PRN Reason: Constipation unrelieved by MOM Carvedilol (Coreg) 25 mg PO BID [facility] Last Admin: 01/31/17 12:16 Dose: 25 mg Clonidine HCl (Catapres) 0.1 mg PO TID [facility] Last Admin: 01/31/17 12:16 Dose: 0.1 mg Hydralazine HCl (Apresoline) 10 mg IV Q4HR PRN PRN Reason: Hypertension Last Admin: 01/30/17 11:33 Dose: 10 mg Hydralazine HCl (Apresoline) 25 mg PO Q8HR [facility] Last Admin: 01/31/17 06:11 Dose: 25 mg Nitroglycerin/Dextrose (Tridil Drip 50mg/250ml) 50 mg in 250 mls @ 3 mls/hr IV TITR MARIA EUGENIA; 10 MCG/MIN PRN Reason: Protocol Last Admin: 01/30/17 03:42 Dose: 10 mcg/min, 3 mls/hr Levofloxacin/Dextrose (Levaquin 750mg/150ml) 750 mg in 150 mls @ 100 mls/hr IV Q24HR [facility] Last Admin: 01/31/17 12:17 Dose: 100 mls/hr Heparin Sodium/Sodium Chloride (Heparin/ 0.45% Nacl-25,000 Unit/500 Ml) 25,000 unit in 500 mls @ 20 mls/hr IV TITRATE MARIA EUGENIA; 1,000 UNITS/HR PRN Reason: Protocol Last Titration: 01/30/17 22:00 Dose: 1,000 units/hr, 20 mls/hr Sodium Chloride (Nacl 0.9% 1000 Ml) 1,000 mls @ 42 mls/hr IV DIRECT MARIA EUGENIA Ondansetron HCl (Zofran) 4 mg IV Q8H PRN PRN Reason: N/V unrelieved by Reglan Last Admin: 01/30/17 17:55 Dose: 4 mg Exam - Vital Signs Vital signs: Vital Signs Pulse Ox 92 01/30/17 02:56 - General Appearance General appearance: well-developed, well-nourished, appears stated age EENT: ATNC, PERRL, mucous membranes moist Neck: Present: neck supple Respiratory: Clear to Ascultation Heart: regular, S1S2 Gastrointestinal: Present: normal, normoactive bowel sounds Integumentary: no rash, other (trace edema ) Neurologic: no focal deficit, alert and oriented x3, strength 5/5, CN 3-12 intact Psychiatric: mood/affect appropriate, cooperative Results - Lab Results 01/31/17 06:38 01/31/17 06:38 Most recent lab results Calcium 8.3 mg/dL (8.4-10.2) L 01/31/17 06:38 Assessment and Plan - Patient Problems (1) Acute kidney failure Current Visit: Yes Status: Acute Qualifiers: Acute renal failure type: A Plan to address problem: most likely due to prerenal azotemia in the setting of IV diuresis. hold lasix for now, since volume status improved. gentle IV NS at 42ml/hr started. check UA, urine lytes, protein/cr ratio avoid nephrotoxins, NSAIDs, IV contrast will monitor electrolytes/renal parameters and make further recommendations pt remains non-oliguric, no acute indications for HD at present (2) Hypertensive emergency Current Visit: Yes Status: Acute Plan to address problem: BP improved on current meds (3) Pulmonary edema Current Visit: Yes Status: Acute Qualifiers: Chronicity: C Plan to address problem: improved with IV diuresis and improved BP
--- NOTE | 2017-01-31 16:09 | Progress Note ---
Assessment and Plan Assessment and plan: --Malignant hypertension Blood pressures moderate control, continue current antihypertensives and when necessary medications --Acute kidney injury Probably secondary to vasomotor nephropathy, prerenal azotemia Hold Lasix, gentle hydration, closely monitor renal function, avoid nephrotoxic medication Nephrology evaluation for assistance with management --Mild elevation of cardiac troponins Coronary artery disease, cardiology following, continue heparin drip, follow echocardiogram Aspirin beta blockers and nitroglycerin and pain medications --Pulmonary edema On IV Lasix, hold in view of acute kidney injury, closely monitor --Diastolic congestive heart failure Continue beta blockers, hold Lasix --DVT prophylaxis; patient is already on heparin drip Closely monitor the patient and adjust management as needed Patient's condition treatment plan discussed in detail with the patient as well as the family member at the bedside Consults and recommendations noted and appreciated History Interval history: Patient feels slightly better Blood pressures reasonable control, however creatinine significantly increased Denies chest pain or shortness of breath Alert awake oriented 3 not in acute distress Vital signs reviewed Hospitalist Physical - Constitutional Vitals: Temp Pulse Resp BP Pulse Ox 98.1 F 82 16 139/83 99 01/31/17 10:14 01/31/17 10:14 01/31/17 10:14 01/31/17 10:14 01/31/17 10:14 General appearance: Present: no acute distress, well-nourished - EENT Eyes: Present: PERRL, EOM intact - Neck Neck: Present: supple, normal ROM - Respiratory Respiratory effort: normal Respiratory: bilateral: diminished, rales, negative: rhonchi, wheezing - Cardiovascular Rhythm: regular Heart Sounds: Present: S1 & S2 - Extremities Extremities: no ischemia, pulses intact, pulses symmetrical Extremity abnormal: edema (trace edema) Peripheral Pulses: within normal limits - Abdominal General gastrointestinal: soft, non-tender, non-distended, normal bowel sounds - Integumentary Integumentary: Present: clear, warm - Psychiatric Psychiatric: appropriate mood/affect, cooperative - Neurologic Neurologic: CNII-XII intact, moves all extremities Results - Labs CBC & Chem 7: 01/31/17 06:38 01/31/17 06:38 Labs: Laboratory Last Values WBC 26.5 K/mm3 (4.5-11.0) H 01/31/17 06:38 RBC 4.17 M/mm3 (3.65-5.03) 01/31/17 06:38 Hgb 9.6 gm/dl (10.1-14.3) L 01/31/17 06:38 Hct 30.6 % (30.3-42.9) 01/31/17 06:38 MCV 73 fl (79-97) L 01/31/17 06:38 MCH 23 pg (28-32) L 01/31/17 06:38 MCHC 31 % (30-34) 01/31/17 06:38 RDW 18.6 % (13.2-15.2) H 01/31/17 06:38 Plt Count 368 K/mm3 (140-440) 01/31/17 06:38 Lymph # Glass Enamel Mixer 01/30/17 03:10 Add Manual Diff Complete 01/31/17 06:38 Total Counted 100 01/31/17 06:38 Seg Neuts % (Manual) 73.0 % (40.0-70.0) H 01/31/17 06:38 Band Neutrophils % 7.0 % 01/31/17 06:38 Lymphocytes % (Manual) 12.0 % (13.4-35.0) L 01/31/17 06:38 Reactive Lymphs % (Man) 0 % 01/31/17 06:38 Monocytes % (Manual) 7.0 % (0.0-7.3) 01/31/17 06:38 Eosinophils % (Manual) 4.0 % (0.0-4.3) 01/30/17 03:10 Basophils % (Manual) 0 % (0.0-1.8) 01/30/17 03:10 Metamyelocytes % 1.0 % 01/31/17 06:38 Myelocytes % 0 % 01/31/17 06:38 Promyelocytes % 0 % 01/31/17 06:38 Blast Cells % 0 % 01/31/17 06:38 Nucleated RBC % Not Reportable 01/31/17 06:38 Seg Neutrophils # Man 19.3 K/mm3 (1.8-7.7) H 01/31/17 06:38 Band Neutrophils # 1.9 K/mm3 01/31/17 06:38 Lymphocytes # (Manual) 3.2 K/mm3 (1.2-5.4) 01/31/17 06:38 Abs React Lymphs (Man) 0.0 K/mm3 01/31/17 06:38 Monocytes # (Manual) 1.9 K/mm3 (0.0-0.8) H 01/31/17 06:38 Eosinophils # (Manual) 0.0 K/mm3 (0.0-0.4) 01/31/17 06:38 Basophils # (Manual) 0.0 K/mm3 (0.0-0.1) 01/31/17 06:38 Metamyelocytes # 0.3 K/mm3 01/31/17 06:38 Myelocytes # 0.0 K/mm3 01/31/17 06:38 Promyelocytes # 0.0 K/mm3 01/31/17 06:38 Blast Cells # 0.0 K/mm3 01/31/17 06:38 WBC Morphology Not Reportable 01/31/17 06:38 Hypersegmented Neuts Not Reportable 01/31/17 06:38 Hyposegmented Neuts Not Reportable 01/31/17 06:38 Hypogranular Neuts Not Reportable 01/31/17 06:38 Smudge Cells Not Reportable 01/31/17 06:38 Toxic Granulation Not Reportable 01/31/17 06:38 Toxic Vacuolation Not Reportable 01/31/17 06:38 Dohle Bodies Not Reportable 01/31/17 06:38 Pelger-Huet Anomaly Not Reportable 01/31/17 06:38 Doreen Rods Not Reportable 01/31/17 06:38 Platelet Estimate Consistent w auto 01/31/17 06:38 Clumped Platelets Not Reportable 01/31/17 06:38 Plt Clumps, EDTA Not Reportable 01/31/17 06:38 Large Platelets Not Reportable 01/31/17 06:38 Giant Platelets Not Reportable 01/31/17 06:38 Platelet Satelliting Not Reportable 01/31/17 06:38 Plt Morphology Comment Not Reportable 01/31/17 06:38 RBC Morphology Not Reportable 01/31/17 06:38 Dimorphic RBCs Not Reportable 01/31/17 06:38 Polychromasia Not Reportable 01/31/17 06:38 Hypochromasia 1+ 01/31/17 06:38 Poikilocytosis Not Reportable 01/31/17 06:38 Anisocytosis 1+ 01/31/17 06:38 Microcytosis Not Reportable 01/31/17 06:38 Macrocytosis Not Reportable 01/31/17 06:38 Spherocytes Not Reportable 01/31/17 06:38 Pappenheimer Bodies Not Reportable 01/31/17 06:38 Sickle Cells Not Reportable 01/31/17 06:38 Target Cells Not Reportable 01/31/17 06:38 Tear Drop Cells Not Reportable 01/31/17 06:38 Ovalocytes Few 01/31/17 06:38 Helmet Cells Not Reportable 01/31/17 06:38 [place] Bodies Not Reportable 01/31/17 06:38 [place] Rings Not Reportable 01/31/17 06:38 [place] Cells Few 01/31/17 06:38 Bite Cells Not Reportable 01/31/17 06:38 Crenated Cell Not Reportable 01/31/17 06:38 Elliptocytes Few 01/31/17 06:38 Acanthocytes (Spur) Not Reportable 01/31/17 06:38 Rouleaux Not Reportable 01/31/17 06:38 Hemoglobin C Crystals Not Reportable 01/31/17 06:38 Schistocytes Not Reportable 01/31/17 06:38 Malaria parasites Not Reportable 01/31/17 06:38 Franky Bodies Not Reportable 01/31/17 06:38 Hem Pathologist Commnt No 01/31/17 06:38 PT 13.3 Sec. (12.2-14.9) 01/30/17 13:31 INR 1.02 (0.87-1.13) 01/30/17 13:31 APTT 32.8 Sec. (24.2-36.6) 01/30/17 13:31 Heparin Anti-Xa Level 0.47 U.I./ml (0.3-0.7) 01/30/17 21:42 Sodium 139 mmol/L (137-145) 01/31/17 06:38 Potassium 3.3 mmol/L (3.6-5.0) L 01/31/17 06:38 Chloride 96.5 mmol/L (98-107) L 01/31/17 06:38 Carbon Dioxide 21 mmol/L (22-30) L 01/31/17 06:38 Anion Gap 25 mmol/L 01/31/17 06:38 BUN 38 mg/dL (7-17) H 01/31/17 06:38 Creatinine 3.4 mg/dL (0.7-1.2) H D 01/31/17 06:38 Estimated GFR 18 ml/min 01/31/17 06:38 BUN/Creatinine Ratio 11.17 % 01/31/17 06:38 Glucose 127 mg/dL (65-100) H 01/31/17 06:38 Calcium 8.3 mg/dL (8.4-10.2) L 01/31/17 06:38 Total Bilirubin 0.20 mg/dL (0.1-1.2) 01/30/17 03:10 AST 20 units/L (5-40) 01/30/17 03:10 ALT 12 units/L (7-56) 01/30/17 03:10 Alkaline Phosphatase 96 units/L (35-129) 01/30/17 03:10 Total Creatine Kinase 160 units/L (30-135) H 01/30/17 13:31 CK-MB (CK-2) 4.7 ng/mL (0.0-4.0) H 01/30/17 13:31 CK-MB (CK-2) Rel Index 2.9 (0-4) 01/30/17 13:31 Troponin T 0.080 ng/mL (0.00-0.029) H D 01/30/17 13:31 NT-Pro-B Natriuret Pep 847.2 pg/mL (0-450) H 01/30/17 03:10 Total Protein 7.6 g/dL (6.3-8.2) 01/30/17 03:10 Albumin 3.6 g/dL (3.9-5) L 01/30/17 03:10 Albumin/Globulin Ratio 0.9 % 01/30/17 03:10 Triglycerides 242 mg/dL (2-149) H 01/30/17 05:59 Cholesterol 214 mg/dL (50-199) H 01/30/17 05:59 LDL Cholesterol Direct 126 mg/dL (50-130) 01/30/17 05:59 HDL Cholesterol 40 mg/dL (40-59) 01/30/17 05:59 Cholesterol/HDL Ratio 5.35 % 01/30/17 05:59
[2017-01-31 22:51] LABS: Bilirubin,Urine NEG (Negative); Blood,Urine SM (Negative); Ketones,Urine NEG (Negative); Leukocyte Esterase,Urine NEG (Negative); Nitrite,Urine NEG (Negative); Urobilinogen,Urine < 2.0 mg/dL (<2.0)
[2017-02-01] MEDS: ZOFRAN IV PRN ×2 (06:13→21:57)
[2017-02-01] MEDS: APRESOLINE PO SCH ×3 (06:20→21:57)
[2017-02-01 08:09] LABS: Hematocrit 28.9 % (30.3-42.9); Hemoglobin 9.3 gm/dl (10.1-14.3)
[2017-02-01 08:27] LABS: Albumin 3.3 g/dL (3.9-5); Albumin/Globulin Ratio 1.1 %; BUN/Creatinine Ratio 13.43; Bilirubin,Total 0.2 mg/dL (0.1-1.2); Calcium 8.1 mg/dL (8.4-10.2); Chloride 97.7 mmol/L (98-107); Potassium 3.1 mmol/L (3.6-5.0); Total Protein 6.4 g/dL (6.3-8.2)
[2017-02-01] MEDS: CATAPRES PO SCH ×3 (09:45→19:41)
[2017-02-01] MEDS ORDERED: K-DUR PO ONE (10:30)
--- NOTE | 2017-02-01 11:53 | Progress Note ---
Assessment and Plan 46yo aaf: 1. flash pulm edema due to hypertensive crisis * now improved 2. mildly elevated trop w/ nl ck * likely due to #1 3. nichole * likely due to #1 4. mild to mod mitral regurgitation rec: hold lasix gentle ivf cont asa dc heparin --> stress mpi prior to dc d/w with pt and primary md - Patient Problems (1) Hypertensive emergency Current Visit: Yes Status: Acute (2) Pulmonary edema Current Visit: Yes Status: Acute Qualifiers: Chronicity: C (3) Renal insufficiency Current Visit: Yes Status: Acute Subjective Date of service: 02/01/17 Interval history: no cp or sob no syncope Objective Vital Signs Temp Pulse Pulse Pulse Resp Resp BP 02/01/17 10:10 74 02/01/17 09:58 98.1 F 74 16 02/01/17 04:00 98.0 F 77 18 02/01/17 00:51 98.4 F 84 20 01/31/17 22:13 90 146/80 01/31/17 21:47 01/31/17 20:30 80 22 22 01/31/17 20:28 82 174/100 01/31/17 19:58 76 01/31/17 19:40 98.3 F 82 20 01/31/17 18:18 74 BP Pulse Ox 02/01/17 10:10 02/01/17 09:58 170/96 100 02/01/17 04:00 167/97 97 02/01/17 00:51 158/92 99 01/31/17 22:13 01/31/17 21:47 100 01/31/17 20:30 99 01/31/17 20:28 01/31/17 19:58 01/31/17 19:40 174/100 99 01/31/17 18:18 158/92 - Physical Examination Neck: Positive: neck supple - Labs and Meds Cardiac Enzymes 02/01/17 Range/Units 07:33 AST 10 (5-40) units/L CBC 02/01/17 Range/Units 07:33 Hgb 9.3 L (10.1-14.3) gm/dl Hct 28.9 L (30.3-42.9) % Plt Count 352 (140-440) K/mm3 Comprehensive Metabolic Panel 02/01/17 Range/Units 07:33 Sodium 137 (137-145) mmol/L Potassium 3.1 L (3.6-5.0) mmol/L Chloride 97.7 L (98-107) mmol/L Carbon Dioxide 23 (22-30) mmol/L BUN 43 H (7-17) mg/dL Creatinine 3.2 H (0.7-1.2) mg/dL Glucose 106 H (65-100) mg/dL Calcium 8.1 L (8.4-10.2) mg/dL AST 10 (5-40) units/L ALT 8 (7-56) units/L Alkaline Phosphatase 61 (35-129) units/L Total Protein 6.4 (6.3-8.2) g/dL Albumin 3.3 L (3.9-5) g/dL - Imaging and Cardiology EKG: image reviewed
--- NOTE | 2017-02-01 12:37 | Progress Note ---
Assessment and Plan - Patient Problems (1) Acute kidney failure Current Visit: Yes Status: Acute Qualifiers: Acute renal failure type: A Plan to address problem: most likely due to ATN in the setting of hypertensive emergency, possible prerenal azotemia in the setting of IV diuresis may contribute. cont to hold lasix. d/c IVF given elevated BP and pt with good po intake. microalbuminuria of ~600mg/g noted. check renal US avoid nephrotoxins, NSAIDs, IV contrast will monitor electrolytes/renal parameters and make further recommendations (2) Hypertensive emergency Current Visit: Yes Status: Acute Plan to address problem: BP improved on current meds (3) Pulmonary edema Current Visit: Yes Status: Acute Qualifiers: Chronicity: C Plan to address problem: improved with IV diuresis and improved BP Subjective Date of service: 02/01/17 Interval history: Pt awake, alert, in NAD Objective - Vital Signs Vital signs: Vital Signs - 12hr 02/01/17 02/01/17 02/01/17 00:51 04:00 09:58 Temperature 98.4 F 98.0 F 98.1 F Pulse Rate Pulse Rate [ 84 77 Apical] Pulse Rate [ 74 Right Radial] Respiratory 20 18 16 Rate Blood Pressure 158/92 167/97 170/96 [Right Radial Artery] O2 Sat by Pulse 99 97 100 Oximetry 02/01/17 10:10 Temperature Pulse Rate 74 Pulse Rate [ Apical] Pulse Rate [ Right Radial] Respiratory Rate Blood Pressure [Right Radial Artery] O2 Sat by Pulse Oximetry - General Appearance General appearance: well-developed, well-nourished, appears stated age EENT: ATNC, PERRL, mucous membranes moist Neck: no JVD Respiratory: Present: Clear to Ascultation Cardiology: regular, S1S2 Gastrointestinal: normal Integumentary: no rash, other (no edema ) Neurologic: no focal deficit, alert and oriented x3, strength 5/5, CN 3-12 intact Psychiatric: mood/affect appropriate, cooperative - Lab 02/01/17 07:33 02/01/17 07:33 Most recent lab results Calcium 8.1 mg/dL (8.4-10.2) L 02/01/17 07:33 Urine Creatinine 48.2 mg/dL (0.1-20.0) H 01/31/17 22:15 Urine Sodium 81 mEq/L 01/31/17 22:15 Urine Total Protein 55 mg/dL (5-11.8) H 01/31/17 22:15
[2017-02-01] MEDS: ASPIRIN PO SCH (12:44)
[2017-02-01] MEDS: COREG PO SCH ×2 (12:44→21:58)
[2017-02-01] MEDS: KCL 10MEQ/100ML 10 MEQ/100 ML BAG IV SCH ×2 (12:45→16:18)
[2017-02-01] MEDS ORDERED: NACL 0.9% 250ML 250 ML ONE (12:52)
--- NOTE | 2017-02-01 16:00 | Progress Note ---
Assessment and Plan Assessment and plan: --Malignant hypertension; moderate control, continue current antihypertensives ,Patient is noncompliant with the antihypertensives, refusing sometimes the medications Patient strongly counseled to adhere to the treatment plan, verbalized understanding --Acute kidney injury; mild improvement Probably secondary to vasomotor nephropathy, prerenal azotemia Hold Lasix, gentle hydration, neurology following, avoid nephrotoxic medication --Mild elevation of cardiac troponins Coronary artery disease, continue heparin drip, follow echocardiogram Aspirin beta blockers and nitroglycerin and pain medications, Stress test prior to discharge --Pulmonary edema On IV Lasix, hold in view of acute kidney injury, closely monitor --Diastolic congestive heart failure; Continue beta blockers, hold Lasix --DVT prophylaxis; patient is already on heparin drip Patient's condition treatment plan discussed in detail with the patient as well as the family member at the bedside Consults and recommendations noted and appreciated History Interval history: Patient seen and evaluated medical records reviewed Patient feels better no new complaints, denies any chest pain or shortness of breath Renal function slightly improved Alert awake oriented 3 not in acute distress Vital signs reviewed, Hospitalist Physical - Constitutional Vitals: Temp Pulse Resp BP Pulse Ox 98.1 F 80 16 175/99 100 02/01/17 09:58 02/01/17 13:28 02/01/17 09:58 02/01/17 13:28 02/01/17 10:00 General appearance: Present: no acute distress, well-nourished - EENT Eyes: Present: PERRL, EOM intact - Neck Neck: Present: supple, normal ROM - Respiratory Respiratory effort: normal Respiratory: bilateral: diminished, negative: rales, rhonchi, wheezing - Cardiovascular Rhythm: regular Heart Sounds: Present: S1 & S2 - Extremities Extremities: no ischemia, pulses intact, pulses symmetrical Peripheral Pulses: within normal limits - Abdominal General gastrointestinal: soft, non-tender, non-distended, normal bowel sounds - Integumentary Integumentary: Present: clear, warm - Psychiatric Psychiatric: appropriate mood/affect, cooperative - Neurologic Neurologic: CNII-XII intact, moves all extremities Results - Labs CBC & Chem 7: 02/01/17 07:33 02/01/17 07:33 Labs: Laboratory Last Values WBC 26.5 K/mm3 (4.5-11.0) H 01/31/17 06:38 RBC 4.17 M/mm3 (3.65-5.03) 01/31/17 06:38 Hgb 9.3 gm/dl (10.1-14.3) L 02/01/17 07:33 Hct 28.9 % (30.3-42.9) L 02/01/17 07:33 MCV 73 fl (79-97) L 01/31/17 06:38 MCH 23 pg (28-32) L 01/31/17 06:38 MCHC 31 % (30-34) 01/31/17 06:38 RDW 18.6 % (13.2-15.2) H 01/31/17 06:38 Plt Count 352 K/mm3 (140-440) 02/01/17 07:33 Lymph # Sprinkler Driver 01/30/17 03:10 Add Manual Diff Complete 01/31/17 06:38 Total Counted 100 01/31/17 06:38 Seg Neuts % (Manual) 73.0 % (40.0-70.0) H 01/31/17 06:38 Band Neutrophils % 7.0 % 01/31/17 06:38 Lymphocytes % (Manual) 12.0 % (13.4-35.0) L 01/31/17 06:38 Reactive Lymphs % (Man) 0 % 01/31/17 06:38 Monocytes % (Manual) 7.0 % (0.0-7.3) 01/31/17 06:38 Eosinophils % (Manual) 4.0 % (0.0-4.3) 01/30/17 03:10 Basophils % (Manual) 0 % (0.0-1.8) 01/30/17 03:10 Metamyelocytes % 1.0 % 01/31/17 06:38 Myelocytes % 0 % 01/31/17 06:38 Promyelocytes % 0 % 01/31/17 06:38 Blast Cells % 0 % 01/31/17 06:38 Nucleated RBC % Not Reportable 01/31/17 06:38 Seg Neutrophils # Man 19.3 K/mm3 (1.8-7.7) H 01/31/17 06:38 Band Neutrophils # 1.9 K/mm3 01/31/17 06:38 Lymphocytes # (Manual) 3.2 K/mm3 (1.2-5.4) 01/31/17 06:38 Abs React Lymphs (Man) 0.0 K/mm3 01/31/17 06:38 Monocytes # (Manual) 1.9 K/mm3 (0.0-0.8) H 01/31/17 06:38 Eosinophils # (Manual) 0.0 K/mm3 (0.0-0.4) 01/31/17 06:38 Basophils # (Manual) 0.0 K/mm3 (0.0-0.1) 01/31/17 06:38 Metamyelocytes # 0.3 K/mm3 01/31/17 06:38 Myelocytes # 0.0 K/mm3 01/31/17 06:38 Promyelocytes # 0.0 K/mm3 01/31/17 06:38 Blast Cells # 0.0 K/mm3 01/31/17 06:38 WBC Morphology Not Reportable 01/31/17 06:38 Hypersegmented Neuts Not Reportable 01/31/17 06:38 Hyposegmented Neuts Not Reportable 01/31/17 06:38 Hypogranular Neuts Not Reportable 01/31/17 06:38 Smudge Cells Not Reportable 01/31/17 06:38 Toxic Granulation Not Reportable 01/31/17 06:38 Toxic Vacuolation Not Reportable 01/31/17 06:38 Dohle Bodies Not Reportable 01/31/17 06:38 Pelger-Huet Anomaly Not Reportable 01/31/17 06:38 Doreen Rods Not Reportable 01/31/17 06:38 Platelet Estimate Consistent w auto 01/31/17 06:38 Clumped Platelets Not Reportable 01/31/17 06:38 Plt Clumps, EDTA Not Reportable 01/31/17 06:38 Large Platelets Not Reportable 01/31/17 06:38 Giant Platelets Not Reportable 01/31/17 06:38 Platelet Satelliting Not Reportable 01/31/17 06:38 Plt Morphology Comment Not Reportable 01/31/17 06:38 RBC Morphology Not Reportable 01/31/17 06:38 Dimorphic RBCs Not Reportable 01/31/17 06:38 Polychromasia Not Reportable 01/31/17 06:38 Hypochromasia 1+ 01/31/17 06:38 Poikilocytosis Not Reportable 01/31/17 06:38 Anisocytosis 1+ 01/31/17 06:38 Microcytosis Not Reportable 01/31/17 06:38 Macrocytosis Not Reportable 01/31/17 06:38 Spherocytes Not Reportable 01/31/17 06:38 Pappenheimer Bodies Not Reportable 01/31/17 06:38 Sickle Cells Not Reportable 01/31/17 06:38 Target Cells Not Reportable 01/31/17 06:38 Tear Drop Cells Not Reportable 01/31/17 06:38 Ovalocytes Few 01/31/17 06:38 Helmet Cells Not Reportable 01/31/17 06:38 [place] Bodies Not Reportable 01/31/17 06:38 [place] Rings Not Reportable 01/31/17 06:38 [place] Cells Few 01/31/17 06:38 Bite Cells Not Reportable 01/31/17 06:38 Crenated Cell Not Reportable 01/31/17 06:38 Elliptocytes Few 01/31/17 06:38 Acanthocytes (Spur) Not Reportable 01/31/17 06:38 Rouleaux Not Reportable 01/31/17 06:38 Hemoglobin C Crystals Not Reportable 01/31/17 06:38 Schistocytes Not Reportable 01/31/17 06:38 Malaria parasites Not Reportable 01/31/17 06:38 [place] Bodies Not Reportable 01/31/17 06:38 Hem Pathologist Commnt No 01/31/17 06:38 PT 13.3 Sec. (12.2-14.9) 01/30/17 13:31 INR 1.02 (0.87-1.13) 01/30/17 13:31 APTT 32.8 Sec. (24.2-36.6) 01/30/17 13:31 Heparin Anti-Xa Level 0.17 U.I./ml (0.3-0.7) L 02/01/17 07:33 Sodium 137 mmol/L (137-145) 02/01/17 07:33 Potassium 3.1 mmol/L (3.6-5.0) L 02/01/17 07:33 Chloride 97.7 mmol/L (98-107) L 02/01/17 07:33 Carbon Dioxide 23 mmol/L (22-30) 02/01/17 07:33 Anion Gap 19 mmol/L 02/01/17 07:33 BUN 43 mg/dL (7-17) H 02/01/17 07:33 Creatinine 3.2 mg/dL (0.7-1.2) H 02/01/17 07:33 Estimated GFR 19 ml/min 02/01/17 07:33 BUN/Creatinine Ratio 13.43 % 02/01/17 07:33 Glucose 106 mg/dL (65-100) H 02/01/17 07:33 Calcium 8.1 mg/dL (8.4-10.2) L 02/01/17 07:33 Total Bilirubin 0.20 mg/dL (0.1-1.2) 02/01/17 07:33 AST 10 units/L (5-40) 02/01/17 07:33 ALT 8 units/L (7-56) 02/01/17 07:33 Alkaline Phosphatase 61 units/L (35-129) 02/01/17 07:33 Total Creatine Kinase 160 units/L (30-135) H 01/30/17 13:31 CK-MB (CK-2) 4.7 ng/mL (0.0-4.0) H 01/30/17 13:31 CK-MB (CK-2) Rel Index 2.9 (0-4) 01/30/17 13:31 Troponin T 0.080 ng/mL (0.00-0.029) H D 01/30/17 13:31 NT-Pro-B Natriuret Pep 847.2 pg/mL (0-450) H 01/30/17 03:10 Total Protein 6.4 g/dL (6.3-8.2) 02/01/17 07:33 Albumin 3.3 g/dL (3.9-5) L 02/01/17 07:33 Albumin/Globulin Ratio 1.1 % 02/01/17 07:33 Triglycerides 242 mg/dL (2-149) H 01/30/17 05:59 Cholesterol 214 mg/dL (50-199) H 01/30/17 05:59 LDL Cholesterol Direct 126 mg/dL (50-130) 01/30/17 05:59 HDL Cholesterol 40 mg/dL (40-59) 01/30/17 05:59 Cholesterol/HDL Ratio 5.35 % 01/30/17 05:59 Urine Color Straw (Yellow) 01/31/17 22:15 Urine Turbidity Clear (Clear) 01/31/17 22:15 Urine pH 6.0 (5.0-7.0) 01/31/17 22:15 Ur Specific [place] 1.008 (1.003-1.030) 01/31/17 22:15 Urine Protein 100 mg/dl mg/dL (Negative) 01/31/17 22:15 Urine Glucose (UA) Neg mg/dL (Negative) 01/31/17 22:15 Urine Ketones Neg mg/dL (Negative) 01/31/17 22:15 Urine Blood Sm (Negative) 01/31/17 22:15 Urine Nitrite Neg (Negative) 01/31/17 22:15 Urine Bilirubin Neg (Negative) 01/31/17 22:15 Urine Urobilinogen < 2.0 mg/dL (<2.0) 01/31/17 22:15 Ur Leukocyte Esterase Neg (Negative) 01/31/17 22:15 Urine WBC (Auto) 2.0 /HPF (0.0-6.0) 01/31/17 22:15 Urine RBC (Auto) 1.0 /HPF (0.0-6.0) 01/31/17 22:15 U Epithel Cells (Auto) 2.0 /HPF (0-13.0) 01/31/17 22:15 Urine Osmolality 295 Mosm/kg 01/31/17 22:15 Urine Creatinine 48.2 mg/dL (0.1-20.0) H 01/31/17 22:15 Urine Microalbumin 33.2 mg/dL (0.1-34.0) 01/31/17 22:15 Microalb/Creat Ratio 688.7 ug/mg 01/31/17 22:15 Urine Sodium 81 mEq/L 01/31/17 22:15 Urine Total Protein 55 mg/dL (5-11.8) H 01/31/17 22:15
[2017-02-01] MEDS ORDERED: AMBIEN PO PRN (22:03)
[2017-02-02] MEDS: ZOFRAN IV PRN (05:52)
[2017-02-02] MEDS: APRESOLINE PO SCH ×3 (05:52→22:43)
[2017-02-02 09:44] LABS: Basophils % (Auto) 1.2 % (0.0-1.8); Eosinophils % (Auto) 0.4 % (0.0-4.3); Hematocrit 29.6 % (30.3-42.9); Hemoglobin 9.3 gm/dl (10.1-14.3); Mean Corpuscular HGB Conc 32 % (30-34); Mean Corpuscular Volume 74 fl (79-97); Platelet Count 364 K/mm3 (140-440); Red Blood Count 4.01 M/mm3 (3.65-5.03); Red Cell Distribution Width 18.2 % (13.2-15.2); White Blood Count 10.7 K/mm3 (4.5-11.0)
[2017-02-02 10:00] LABS: Mean Corpuscular Hemoglobin 23 pg (28-32)
[2017-02-02] MEDS: CATAPRES PO SCH ×3 (10:02→22:44)
[2017-02-02] MEDS: ASPIRIN PO SCH (10:03)
--- NOTE | 2017-02-02 10:49 | Progress Note ---
Assessment and Plan (1) Acute kidney failure Current Visit: Yes Status: Acute Qualifiers: Acute renal failure type: A Plan to address problem: Most likely due to ATN in the setting of hypertensive emergency, possible prerenal azotemia in the setting of IV diuresis may contribute. CR started improving. Cont to hold lasix for today. microalbuminuria of ~600mg/g noted. Renal US reviewed. No hydronephrosis seen. Severely increased echogenecity on both sides suggesting medical renal disease. Avoid nephrotoxins, NSAIDs, IV contrast Will monitor electrolytes/renal parameters and make further recommendations (2) Hypertensive emergency Current Visit: Yes Status: Acute Plan to address problem: BP remained high. Increase Hydrazine to 50 mg TID (3) Pulmonary edema Current Visit: Yes Status: Acute Qualifiers: Chronicity: C Plan to address problem: Improved with IV diuresis and improved BP Subjective Date of service: 02/02/17 Objective - Exam Narrative Exam: General appearance: well-developed, well-nourished, appears stated age EENT: ATNC, PERRL, mucous membranes moist, Neck: no JVD, normal ROM Respiratory: Present: Clear to Ascultation, no wheezing Cardiology: regular, S1S2, no m/g/r Gastrointestinal: normal BS, non tender Integumentary: no rash, warm and dry Neurologic: no focal deficit, alert and oriented x3, strength 5/5, CN 3-12 intact Psychiatric: mood/affect appropriate, cooperative - Vital Signs Vital signs: Vital Signs - 12hr 02/02/17 02/02/17 02/02/17 00:40 05:35 05:52 Temperature 98.4 F 98.2 F Pulse Rate 78 Pulse Rate [ 77 78 Apical] Pulse Rate [ From Monitor] Pulse Rate [ Right Radial] Respiratory 20 20 Rate Blood Pressure 159/96 Blood Pressure 170/101 159/96 [Right Radial Artery] O2 Sat by Pulse 99 100 Oximetry 02/02/17 02/02/17 02/02/17 09:03 09:30 10:00 Temperature 98.0 F Pulse Rate Pulse Rate [ Apical] Pulse Rate [ 78 From Monitor] Pulse Rate [ 78 Right Radial] Respiratory 18 18 Rate Blood Pressure Blood Pressure 179/98 [Right Radial Artery] O2 Sat by Pulse 98 100 98 Oximetry 02/02/17 10:02 Temperature Pulse Rate 78 Pulse Rate [ Apical] Pulse Rate [ From Monitor] Pulse Rate [ Right Radial] Respiratory Rate Blood Pressure 179/98 Blood Pressure [Right Radial Artery] O2 Sat by Pulse Oximetry - Lab 02/02/17 09:35 02/02/17 09:35 Most recent lab results Calcium 8.1 mg/dL (8.4-10.2) L 02/01/17 07:33 Urine Creatinine 48.2 mg/dL (0.1-20.0) H 01/31/17 22:15 Urine Sodium 81 mEq/L 01/31/17 22:15 Urine Total Protein 55 mg/dL (5-11.8) H 01/31/17 22:15
--- NOTE | 2017-02-02 13:24 | Ultrasound Report ---
ULTRASOUND RENAL INDICATION: Acute kidney injury. COMPARISON: None similar. FINDINGS: Renal sonography suggests moderate to severely increased renal cortical echogenicity. Grossly preserved contours. No hydronephrosis, though slight right intrarenal fullness with AP renal pelvis diameter of 6 mm, image 12. RIGHT KIDNEY measures 12.8 x 5.2 x 5.4 cm with cortical thickness of 1.2 cm. LEFT KIDNEY estimated at 11.3 x 6.1 x 4.9 cm with cortical thickness of 1.1 cm. URINARY BLADDER grossly within normal limits. An enlarged, heterogeneous, myomatous uterus incidentally noted. CONCLUSION: Severe underlying medical renal disease and myomatous uterus noted sonographically, as described. Please correlate. Thank you for the opportunity to participate in this patient's care.
--- NOTE | 2017-02-02 13:39 | Progress Note ---
Assessment and Plan Assessment: Flash pulmonary edema 2/2 to hypertensive crisis Hypertensive urgency Elevated troponin - mildly elevated and flat with normal CK/MB; ECG with NAF; pt denies chest pain. SABRA Mild to moderate MR Anemia Plan: Lasix held in setting of SABRA. Await AM BMP. D/c heparin gtt. Initiate Lovenox for DVT prophylaxis. Repeat CXR in AM. Optimize anti-hypertensive regimen and plan for lexiscan MPI stress test once BPs stable - can be done as OP. Assessment and plan reviewed with pt at bedside. The patient has been seen in conjunction with Dr. Cuevas who agrees with the assessment and plan of care. Subjective Date of service: 02/02/17 Principal diagnosis: accelerated HTN; elevated trop Interval history: Pt resting in bed, states SOB is improving. BPs labile. Objective Last Vital Signs Temp 98.0 F 02/02/17 09:03 Pulse 78 02/02/17 10:02 Resp 18 02/02/17 10:00 BP 179/98 02/02/17 10:02 Pulse Ox 98 02/02/17 10:00 - Physical Examination General: Appears Well Neck: Positive: neck supple Cardiac: Positive: Reg Rate and Rhythm, S1/S2 Lungs: Positive: Decreased Breath Sounds, Oxygen Neuro: Positive: Grossly Intact, Cranial Nerve 2-12 Intact Abdomen: Positive: Unremarkable, Soft, Active Bowel Sounds. Negative: Tender Skin: Positive: Clear. Negative: Rash, Wound Musculoskeletal: No Fluid Collection, No Pain, Normal Range of Motion Extremities: Present: upper extr. pulses, lower extr. pulses. Absent: edema - Labs and Meds CBC 02/02/17 Range/Units 09:35 WBC 10.7 (4.5-11.0) K/mm3 RBC 4.01 (3.65-5.03) M/mm3 Hgb 9.3 L (10.1-14.3) gm/dl Hct 29.6 L (30.3-42.9) % Plt Count 364 (140-440) K/mm3 Lymph # 2.7 (1.2-5.4) K/mm3 [place] # 0.7 (0.0-0.8) K/mm3 Eos # 0.0 (0.0-0.4) K/mm3 Baso # 0.1 (0.0-0.1) K/mm3 - Imaging and Cardiology EKG: image reviewed - Telemetry EKG Rhythm: Sinus Rhythm
[2017-02-02] MEDS: LEVAQUIN 750MG/150ML 750 MG/150 ML BAG IV SCH (14:15)
[2017-02-02] MEDS: TYLENOL PO PRN (14:16)
[2017-02-02 14:57] LABS: BUN/Creatinine Ratio 13.1; Calcium 8.7 mg/dL (8.4-10.2); Chloride 96.6 mmol/L (98-107); Potassium 3.5 mmol/L (3.6-5.0)
[2017-02-02] MEDS: COREG PO SCH ×2 (15:12→22:44)
--- NOTE | 2017-02-02 20:11 | Progress Note ---
Assessment and Plan Assessment and plan: --Malignant hypertension; moderate control, continue current antihypertensives ,Patient is noncompliant and is refusing some medications Patient strongly counseled to adhere to the treatment plan, verbalized understanding --Acute kidney injury; creatinine trending down Probably secondary to vasomotor nephropathy, prerenal azotemia Hold Lasix, gentle hydration, neurology following, avoid nephrotoxic medication --Mild elevation of cardiac troponins Coronary artery disease, heparin drip discontinued , continue Lovenox Aspirin beta blockers and nitroglycerin and pain medications, Stress test prior to discharge --Pulmonary edema Symptoms significantly improved, off Lasix --Diastolic congestive heart failure; Continue beta blockers, hold Lasix --DVT prophylaxis; patient is already on heparin drip Patient's condition treatment plan discussed in detail with the patient as well as the family member at the bedside Consults and recommendations noted and appreciated History Interval history: Patient seen and evaluated medical records reviewed No new events reported by the nursing staff Denies chest pain or shortness of breath Alert awake oriented 3 not in acute distress Vital signs reviewed Hospitalist Physical - Constitutional Vitals: Temp Pulse Resp BP Pulse Ox 98.3 F 79 18 174/99 98 02/02/17 18:07 02/02/17 18:07 02/02/17 18:07 02/02/17 18:07 02/02/17 18:07 General appearance: Present: no acute distress, well-nourished - EENT Eyes: Present: PERRL, EOM intact - Neck Neck: Present: supple, normal ROM - Respiratory Respiratory effort: normal Respiratory: bilateral: diminished, negative: rales, rhonchi, wheezing - Cardiovascular Rhythm: regular Heart Sounds: Present: S1 & S2 - Extremities Extremities: no ischemia, pulses intact, pulses symmetrical Peripheral Pulses: within normal limits - Abdominal General gastrointestinal: soft, non-tender, non-distended, normal bowel sounds - Integumentary Integumentary: Present: clear, warm - Psychiatric Psychiatric: appropriate mood/affect, cooperative - Neurologic Neurologic: CNII-XII intact, moves all extremities Results - Labs CBC & Chem 7: 02/02/17 09:35 02/02/17 09:35 Labs: Laboratory Last Values WBC 10.7 K/mm3 (4.5-11.0) 02/02/17 09:35 RBC 4.01 M/mm3 (3.65-5.03) 02/02/17 09:35 Hgb 9.3 gm/dl (10.1-14.3) L 02/02/17 09:35 Hct 29.6 % (30.3-42.9) L 02/02/17 09:35 MCV 74 fl (79-97) L 02/02/17 09:35 MCH 23 pg (28-32) L 02/02/17 09:35 MCHC 32 % (30-34) 02/02/17 09:35 RDW 18.2 % (13.2-15.2) H 02/02/17 09:35 Plt Count 364 K/mm3 (140-440) 02/02/17 09:35 Lymph % (Auto) 25.4 % (13.4-35.0) 02/02/17 09:35 [place] % (Auto) 6.8 % (0.0-7.3) 02/02/17 09:35 Eos % (Auto) 0.4 % (0.0-4.3) 02/02/17 09:35 Baso % (Auto) 1.2 % (0.0-1.8) 02/02/17 09:35 Lymph # 2.7 K/mm3 (1.2-5.4) 02/02/17 09:35 [place] # 0.7 K/mm3 (0.0-0.8) 02/02/17 09:35 Eos # 0.0 K/mm3 (0.0-0.4) 02/02/17 09:35 Baso # 0.1 K/mm3 (0.0-0.1) 02/02/17 09:35 Add Manual Diff Complete 01/31/17 06:38 Total Counted 100 01/31/17 06:38 Seg Neutrophils % 66.2 % (40.0-70.0) 02/02/17 09:35 Seg Neuts % (Manual) 73.0 % (40.0-70.0) H 01/31/17 06:38 Band Neutrophils % 7.0 % 01/31/17 06:38 Lymphocytes % (Manual) 12.0 % (13.4-35.0) L 01/31/17 06:38 Reactive Lymphs % (Man) 0 % 01/31/17 06:38 Monocytes % (Manual) 7.0 % (0.0-7.3) 01/31/17 06:38 Eosinophils % (Manual) 4.0 % (0.0-4.3) 01/30/17 03:10 Basophils % (Manual) 0 % (0.0-1.8) 01/30/17 03:10 Metamyelocytes % 1.0 % 01/31/17 06:38 Myelocytes % 0 % 01/31/17 06:38 Promyelocytes % 0 % 01/31/17 06:38 Blast Cells % 0 % 01/31/17 06:38 Nucleated RBC % Not Reportable 01/31/17 06:38 Seg Neutrophils # 7.1 K/mm3 (1.8-7.7) 02/02/17 09:35 Seg Neutrophils # Man 19.3 K/mm3 (1.8-7.7) H 01/31/17 06:38 Band Neutrophils # 1.9 K/mm3 01/31/17 06:38 Lymphocytes # (Manual) 3.2 K/mm3 (1.2-5.4) 01/31/17 06:38 Abs React Lymphs (Man) 0.0 K/mm3 01/31/17 06:38 Monocytes # (Manual) 1.9 K/mm3 (0.0-0.8) H 01/31/17 06:38 Eosinophils # (Manual) 0.0 K/mm3 (0.0-0.4) 01/31/17 06:38 Basophils # (Manual) 0.0 K/mm3 (0.0-0.1) 01/31/17 06:38 Metamyelocytes # 0.3 K/mm3 01/31/17 06:38 Myelocytes # 0.0 K/mm3 01/31/17 06:38 Promyelocytes # 0.0 K/mm3 01/31/17 06:38 Blast Cells # 0.0 K/mm3 01/31/17 06:38 WBC Morphology Not Reportable 01/31/17 06:38 Hypersegmented Neuts Not Reportable 01/31/17 06:38 Hyposegmented Neuts Not Reportable 01/31/17 06:38 Hypogranular Neuts Not Reportable 01/31/17 06:38 Smudge Cells Not Reportable 01/31/17 06:38 Toxic Granulation Not Reportable 01/31/17 06:38 Toxic Vacuolation Not Reportable 01/31/17 06:38 Dohle Bodies Not Reportable 01/31/17 06:38 Pelger-Huet Anomaly Not Reportable 01/31/17 06:38 Doreen Rods Not Reportable 01/31/17 06:38 Platelet Estimate Consistent w auto 01/31/17 06:38 Clumped Platelets Not Reportable 01/31/17 06:38 Plt Clumps, EDTA Not Reportable 01/31/17 06:38 Large Platelets Not Reportable 01/31/17 06:38 Giant Platelets Not Reportable 01/31/17 06:38 Platelet Satelliting Not Reportable 01/31/17 06:38 Plt Morphology Comment Not Reportable 01/31/17 06:38 RBC Morphology Not Reportable 01/31/17 06:38 Dimorphic RBCs Not Reportable 01/31/17 06:38 Polychromasia Not Reportable 01/31/17 06:38 Hypochromasia 1+ 01/31/17 06:38 Poikilocytosis Not Reportable 01/31/17 06:38 Anisocytosis 1+ 01/31/17 06:38 Microcytosis Not Reportable 01/31/17 06:38 Macrocytosis Not Reportable 01/31/17 06:38 Spherocytes Not Reportable 01/31/17 06:38 Pappenheimer Bodies Not Reportable 01/31/17 06:38 Sickle Cells Not Reportable 01/31/17 06:38 Target Cells Not Reportable 01/31/17 06:38 Tear Drop Cells Not Reportable 01/31/17 06:38 Ovalocytes Few 01/31/17 06:38 Helmet Cells Not Reportable 01/31/17 06:38 [place] Bodies Not Reportable 01/31/17 06:38 [place] Rings Not Reportable 01/31/17 06:38 [place] Cells Few 01/31/17 06:38 Bite Cells Not Reportable 01/31/17 06:38 Crenated Cell Not Reportable 01/31/17 06:38 Elliptocytes Few 01/31/17 06:38 Acanthocytes (Spur) Not Reportable 01/31/17 06:38 Rouleaux Not Reportable 01/31/17 06:38 Hemoglobin C Crystals Not Reportable 01/31/17 06:38 Schistocytes Not Reportable 01/31/17 06:38 Malaria parasites Not Reportable 01/31/17 06:38 [place] Bodies Not Reportable 01/31/17 06:38 Hem Pathologist Commnt No 01/31/17 06:38 PT 13.3 Sec. (12.2-14.9) 01/30/17 13:31 INR 1.02 (0.87-1.13) 01/30/17 13:31 APTT 32.8 Sec. (24.2-36.6) 01/30/17 13:31 Heparin Anti-Xa Level 0.38 U.I./ml (0.3-0.7) 02/02/17 08:12 Sodium 136 mmol/L (137-145) L 02/02/17 09:35 Potassium 3.5 mmol/L (3.6-5.0) L 02/02/17 09:35 Chloride 96.6 mmol/L (98-107) L 02/02/17 09:35 Carbon Dioxide 23 mmol/L (22-30) 02/02/17 09:35 Anion Gap 20 mmol/L 02/02/17 09:35 BUN 38 mg/dL (7-17) H 02/02/17 09:35 Creatinine 2.9 mg/dL (0.7-1.2) H 02/02/17 09:35 Estimated GFR 21 ml/min 02/02/17 09:35 BUN/Creatinine Ratio 13.10 % 02/02/17 09:35 Glucose 92 mg/dL (65-100) 02/02/17 09:35 Calcium 8.7 mg/dL (8.4-10.2) 02/02/17 09:35 Total Bilirubin 0.20 mg/dL (0.1-1.2) 02/01/17 07:33 AST 10 units/L (5-40) 02/01/17 07:33 ALT 8 units/L (7-56) 02/01/17 07:33 Alkaline Phosphatase 61 units/L (35-129) 02/01/17 07:33 Total Creatine Kinase 160 units/L (30-135) H 01/30/17 13:31 CK-MB (CK-2) 4.7 ng/mL (0.0-4.0) H 01/30/17 13:31 CK-MB (CK-2) Rel Index 2.9 (0-4) 01/30/17 13:31 Troponin T 0.080 ng/mL (0.00-0.029) H D 01/30/17 13:31 NT-Pro-B Natriuret Pep 847.2 pg/mL (0-450) H 01/30/17 03:10 Total Protein 6.4 g/dL (6.3-8.2) 02/01/17 07:33 Albumin 3.3 g/dL (3.9-5) L 02/01/17 07:33 Albumin/Globulin Ratio 1.1 % 02/01/17 07:33 Triglycerides 242 mg/dL (2-149) H 01/30/17 05:59 Cholesterol 214 mg/dL (50-199) H 01/30/17 05:59 LDL Cholesterol Direct 126 mg/dL (50-130) 01/30/17 05:59 HDL Cholesterol 40 mg/dL (40-59) 01/30/17 05:59 Cholesterol/HDL Ratio 5.35 % 01/30/17 05:59 Urine Color Straw (Yellow) 01/31/17 22:15 Urine Turbidity Clear (Clear) 01/31/17 22:15 Urine pH 6.0 (5.0-7.0) 01/31/17 22:15 Ur Specific [place] 1.008 (1.003-1.030) 01/31/17 22:15 Urine Protein 100 mg/dl mg/dL (Negative) 01/31/17 22:15 Urine Glucose (UA) Neg mg/dL (Negative) 01/31/17 22:15 Urine Ketones Neg mg/dL (Negative) 01/31/17 22:15 Urine Blood Sm (Negative) 01/31/17 22:15 Urine Nitrite Neg (Negative) 01/31/17 22:15 Urine Bilirubin Neg (Negative) 01/31/17 22:15 Urine Urobilinogen < 2.0 mg/dL (<2.0) 01/31/17 22:15 Ur Leukocyte Esterase Neg (Negative) 01/31/17 22:15 Urine WBC (Auto) 2.0 /HPF (0.0-6.0) 01/31/17 22:15 Urine RBC (Auto) 1.0 /HPF (0.0-6.0) 01/31/17 22:15 U Epithel Cells (Auto) 2.0 /HPF (0-13.0) 01/31/17 22:15 Urine Osmolality 295 Mosm/kg 01/31/17 22:15 Urine Creatinine 48.2 mg/dL (0.1-20.0) H 01/31/17 22:15 Urine Microalbumin 33.2 mg/dL (0.1-34.0) 01/31/17 22:15 Microalb/Creat Ratio 688.7 ug/mg 01/31/17 22:15 Urine Sodium 81 mEq/L 01/31/17 22:15 Urine Total Protein 55 mg/dL (5-11.8) H 01/31/17 22:15
[2017-02-02] MEDS ORDERED: LOVENOX SUB-Q SCH (22:00)
[2017-02-02] MEDS: LOVENOX SUB-Q SCH (22:42)
[2017-02-03 05:58] LABS: Basophils % (Auto) 0.6 % (0.0-1.8); Hematocrit 29.6 % (30.3-42.9); Hemoglobin 9.3 gm/dl (10.1-14.3); Mean Corpuscular HGB Conc 31 % (30-34); Mean Corpuscular Volume 73 fl (79-97); Platelet Count 332 K/mm3 (140-440); Red Blood Count 4.08 M/mm3 (3.65-5.03); Red Cell Distribution Width 18.2 % (13.2-15.2); White Blood Count 10.6 K/mm3 (4.5-11.0)
[2017-02-03] MEDS: APRESOLINE PO SCH ×3 (06:03→18:17)
[2017-02-03 06:04] LABS: Mean Corpuscular Hemoglobin 23 pg (28-32)
[2017-02-03 06:20] LABS: BUN/Creatinine Ratio 14.23; Calcium 8.6 mg/dL (8.4-10.2); Magnesium 1.9 mg/dL (1.7-2.3); Potassium 3.6 mmol/L (3.6-5.0)
--- NOTE | 2017-02-03 08:03 | XRay Report ---
AP CHEST: HISTORY: chest pain AP view of the chest demonstrates a normal mediastinal and cardiac contour with clear lungs and normal bony and soft tissue structures. IMPRESSION: Unremarkable AP chest. Bilateral pulmonary edema or infiltrates have resolved since 01/30/17.
[2017-02-03] MEDS: TYLENOL PO PRN (08:28)
[2017-02-03] MEDS: CATAPRES PO SCH ×3 (08:28→21:04)
[2017-02-03] MEDS ORDERED: PROCARDIA XL PO SCH ×2 (10:00→11:29)
[2017-02-03] MEDS: LOVENOX SUB-Q SCH (11:10)
[2017-02-03] MEDS: ASPIRIN PO SCH (11:10)
[2017-02-03] MEDS: COREG PO SCH ×2 (11:10→21:05)
--- NOTE | 2017-02-03 11:31 | Progress Note ---
Assessment and Plan Assessment: Flash pulmonary edema 2/2 to hypertensive crisis - resolved. Hypertensive urgency - improving. Elevated troponin - mildly elevated and flat with normal CK/MB; ECG with NAF; pt denies chest pain. SABRA Mild to moderate MR Anemia Plan: Repeat CXR today revealed resolved pulmonary edema. No cardiac indication for any additional diuresis. Optimize anti-hypertensive regimen - increase procardia to 60mg daily. Consider lexiscan MPI stress test as OP. Assessment and plan reviewed with pt at bedside. The patient has been seen in conjunction with Dr. Cuevas who agrees with the assessment and plan of care. Subjective Date of service: 02/03/17 Principal diagnosis: accelerated HTN; elevated trop Interval history: Pt resting up in chair. Denies any complaints. BPs remain labile. Objective Last Vital Signs Temp 97.8 F 02/03/17 10:21 Pulse 81 02/03/17 10:21 Resp 18 02/03/17 10:21 BP 170/100 02/03/17 10:21 Pulse Ox 100 02/03/17 10:21 - Physical Examination General: Appears Well Neck: Positive: neck supple Cardiac: Positive: Reg Rate and Rhythm, S1/S2 Lungs: Positive: clear to auscultation Neuro: Positive: Grossly Intact, Cranial Nerve 2-12 Intact Abdomen: Positive: Unremarkable, Soft, Active Bowel Sounds. Negative: Tender Skin: Positive: Clear. Negative: Rash, Wound Musculoskeletal: No Fluid Collection, No Pain, Normal Range of Motion Extremities: Present: upper extr. pulses, lower extr. pulses. Absent: edema - Labs and Meds CBC 02/03/17 Range/Units 05:19 WBC 10.6 (4.5-11.0) K/mm3 RBC 4.08 (3.65-5.03) M/mm3 Hgb 9.3 L (10.1-14.3) gm/dl Hct 29.6 L (30.3-42.9) % Plt Count 332 (140-440) K/mm3 Lymph # 1.8 (1.2-5.4) K/mm3 [place] # 0.8 (0.0-0.8) K/mm3 Eos # 0.2 (0.0-0.4) K/mm3 Baso # 0.1 (0.0-0.1) K/mm3 Comprehensive Metabolic Panel 05/22/17 05/23/17 Range/Units 09:35 05:19 Sodium 136 L 138 (137-145) mmol/L Potassium 3.5 L 3.6 (3.6-5.0) mmol/L Chloride 96.6 L 99.0 (98-107) mmol/L Carbon Dioxide 23 22 (22-30) mmol/L BUN 38 H 37 H (7-17) mg/dL Creatinine 2.9 H 2.6 H (0.7-1.2) mg/dL Glucose 92 119 H (65-100) mg/dL Calcium 8.7 8.6 (8.4-10.2) mg/dL - Imaging and Cardiology EKG: image reviewed - Telemetry EKG Rhythm: Sinus Rhythm
[2017-02-03] MEDS ORDERED: PROCARDIA XL PO ONE (12:30)
--- NOTE | 2017-02-03 12:49 | Progress Note ---
Assessment and Plan Assessment and plan: --Malignant hypertension; moderate control, continue current antihypertensives ,Patient is noncompliant and is refusing some medications Patient strongly counseled to adhere to the treatment plan, verbalized understanding --Acute kidney injury; creatinine trending down Probably secondary to vasomotor nephropathy, prerenal azotemia Hold Lasix, gentle hydration, neurology following, avoid nephrotoxic medication --Mild elevation of cardiac troponins Coronary artery disease, heparin drip discontinued , continue Lovenox Aspirin beta blockers and nitroglycerin and pain medications, Stress test prior to discharge --Pulmonary edema Symptoms significantly improved, off Lasix --Diastolic congestive heart failure; Continue beta blockers, hold Lasix --DVT prophylaxis; patient is already on heparin drip Patient's condition treatment plan discussed in detail with the patient as well as the family member at the bedside Consults and recommendations noted and appreciated Hospitalist Physical - Constitutional Vitals: Temp Pulse Resp BP Pulse Ox 97.8 F 81 18 170/100 100 02/03/17 10:21 02/03/17 10:21 02/03/17 10:21 02/03/17 10:21 02/03/17 10:21 General appearance: Present: no acute distress, well-nourished Results - Labs CBC & Chem 7: 02/03/17 05:19 02/03/17 05:19 Labs: Laboratory Last Values WBC 10.6 K/mm3 (4.5-11.0) 02/03/17 05:19 RBC 4.08 M/mm3 (3.65-5.03) 02/03/17 05:19 Hgb 9.3 gm/dl (10.1-14.3) L 02/03/17 05:19 Hct 29.6 % (30.3-42.9) L 02/03/17 05:19 MCV 73 fl (79-97) L 02/03/17 05:19 MCH 23 pg (28-32) L 02/03/17 05:19 MCHC 31 % (30-34) 02/03/17 05:19 RDW 18.2 % (13.2-15.2) H 02/03/17 05:19 Plt Count 332 K/mm3 (140-440) 02/03/17 05:19 Lymph % (Auto) 17.3 % (13.4-35.0) 02/03/17 05:19 [place] % (Auto) 7.2 % (0.0-7.3) 02/03/17 05:19 Eos % (Auto) 2.0 % (0.0-4.3) 02/03/17 05:19 Baso % (Auto) 0.6 % (0.0-1.8) 02/03/17 05:19 Lymph # 1.8 K/mm3 (1.2-5.4) 02/03/17 05:19 [place] # 0.8 K/mm3 (0.0-0.8) 02/03/17 05:19 Eos # 0.2 K/mm3 (0.0-0.4) 02/03/17 05:19 Baso # 0.1 K/mm3 (0.0-0.1) 02/03/17 05:19 Add Manual Diff Complete 01/31/17 06:38 Total Counted 100 01/31/17 06:38 Seg Neutrophils % 72.9 % (40.0-70.0) H 02/03/17 05:19 Seg Neuts % (Manual) 73.0 % (40.0-70.0) H 01/31/17 06:38 Band Neutrophils % 7.0 % 01/31/17 06:38 Lymphocytes % (Manual) 12.0 % (13.4-35.0) L 01/31/17 06:38 Reactive Lymphs % (Man) 0 % 01/31/17 06:38 Monocytes % (Manual) 7.0 % (0.0-7.3) 01/31/17 06:38 Eosinophils % (Manual) 4.0 % (0.0-4.3) 01/30/17 03:10 Basophils % (Manual) 0 % (0.0-1.8) 01/30/17 03:10 Metamyelocytes % 1.0 % 01/31/17 06:38 Myelocytes % 0 % 01/31/17 06:38 Promyelocytes % 0 % 01/31/17 06:38 Blast Cells % 0 % 01/31/17 06:38 Nucleated RBC % Not Reportable 01/31/17 06:38 Seg Neutrophils # 7.7 K/mm3 (1.8-7.7) 02/03/17 05:19 Seg Neutrophils # Man 19.3 K/mm3 (1.8-7.7) H 01/31/17 06:38 Band Neutrophils # 1.9 K/mm3 01/31/17 06:38 Lymphocytes # (Manual) 3.2 K/mm3 (1.2-5.4) 01/31/17 06:38 Abs React Lymphs (Man) 0.0 K/mm3 01/31/17 06:38 Monocytes # (Manual) 1.9 K/mm3 (0.0-0.8) H 01/31/17 06:38 Eosinophils # (Manual) 0.0 K/mm3 (0.0-0.4) 01/31/17 06:38 Basophils # (Manual) 0.0 K/mm3 (0.0-0.1) 01/31/17 06:38 Metamyelocytes # 0.3 K/mm3 01/31/17 06:38 Myelocytes # 0.0 K/mm3 01/31/17 06:38 Promyelocytes # 0.0 K/mm3 01/31/17 06:38 Blast Cells # 0.0 K/mm3 01/31/17 06:38 WBC Morphology Not Reportable 01/31/17 06:38 Hypersegmented Neuts Not Reportable 01/31/17 06:38 Hyposegmented Neuts Not Reportable 01/31/17 06:38 Hypogranular Neuts Not Reportable 01/31/17 06:38 Smudge Cells Not Reportable 01/31/17 06:38 Toxic Granulation Not Reportable 01/31/17 06:38 Toxic Vacuolation Not Reportable 01/31/17 06:38 Dohle Bodies Not Reportable 01/31/17 06:38 Pelger-Huet Anomaly Not Reportable 01/31/17 06:38 Doreen Rods Not Reportable 01/31/17 06:38 Platelet Estimate Consistent w auto 01/31/17 06:38 Clumped Platelets Not Reportable 01/31/17 06:38 Plt Clumps, EDTA Not Reportable 01/31/17 06:38 Large Platelets Not Reportable 01/31/17 06:38 Giant Platelets Not Reportable 01/31/17 06:38 Platelet Satelliting Not Reportable 01/31/17 06:38 Plt Morphology Comment Not Reportable 01/31/17 06:38 RBC Morphology Not Reportable 01/31/17 06:38 Dimorphic RBCs Not Reportable 01/31/17 06:38 Polychromasia Not Reportable 01/31/17 06:38 Hypochromasia 1+ 01/31/17 06:38 Poikilocytosis Not Reportable 01/31/17 06:38 Anisocytosis 1+ 01/31/17 06:38 Microcytosis Not Reportable 01/31/17 06:38 Macrocytosis Not Reportable 01/31/17 06:38 Spherocytes Not Reportable 01/31/17 06:38 Pappenheimer Bodies Not Reportable 01/31/17 06:38 Sickle Cells Not Reportable 01/31/17 06:38 Target Cells Not Reportable 01/31/17 06:38 Tear Drop Cells Not Reportable 01/31/17 06:38 Ovalocytes Few 01/31/17 06:38 Helmet Cells Not Reportable 01/31/17 06:38 [place] Bodies Not Reportable 01/31/17 06:38 [place] Rings Not Reportable 01/31/17 06:38 Trace Cells Few 01/31/17 06:38 Bite Cells Not Reportable 01/31/17 06:38 Crenated Cell Not Reportable 01/31/17 06:38 Elliptocytes Few 01/31/17 06:38 Acanthocytes (Spur) Not Reportable 01/31/17 06:38 Rouleaux Not Reportable 01/31/17 06:38 Hemoglobin C Crystals Not Reportable 01/31/17 06:38 Schistocytes Not Reportable 01/31/17 06:38 Malaria parasites Not Reportable 01/31/17 06:38 Franky Bodies Not Reportable 01/31/17 06:38 Hem Pathologist Commnt No 01/31/17 06:38 PT 13.3 Sec. (12.2-14.9) 01/30/17 13:31 INR 1.02 (0.87-1.13) 01/30/17 13:31 APTT 32.8 Sec. (24.2-36.6) 01/30/17 13:31 Heparin Anti-Xa Level 0.38 U.I./ml (0.3-0.7) 02/02/17 08:12 Sodium 138 mmol/L (137-145) 02/03/17 05:19 Potassium 3.6 mmol/L (3.6-5.0) 02/03/17 05:19 Chloride 99.0 mmol/L (98-107) 02/03/17 05:19 Carbon Dioxide 22 mmol/L (22-30) 02/03/17 05:19 Anion Gap 21 mmol/L 02/03/17 05:19 BUN 37 mg/dL (7-17) H 02/03/17 05:19 Creatinine 2.6 mg/dL (0.7-1.2) H 02/03/17 05:19 Estimated GFR 24 ml/min 02/03/17 05:19 BUN/Creatinine Ratio 14.23 % 02/03/17 05:19 Glucose 119 mg/dL (65-100) H 02/03/17 05:19 Calcium 8.6 mg/dL (8.4-10.2) 02/03/17 05:19 Magnesium 1.90 mg/dL (1.7-2.3) 02/03/17 05:19 Total Bilirubin 0.20 mg/dL (0.1-1.2) 02/01/17 07:33 AST 10 units/L (5-40) 02/01/17 07:33 ALT 8 units/L (7-56) 02/01/17 07:33 Alkaline Phosphatase 61 units/L (35-129) 02/01/17 07:33 Total Creatine Kinase 160 units/L (30-135) H 01/30/17 13:31 CK-MB (CK-2) 4.7 ng/mL (0.0-4.0) H 01/30/17 13:31 CK-MB (CK-2) Rel Index 2.9 (0-4) 01/30/17 13:31 Troponin T 0.080 ng/mL (0.00-0.029) H D 01/30/17 13:31 NT-Pro-B Natriuret Pep 847.2 pg/mL (0-450) H 01/30/17 03:10 Total Protein 6.4 g/dL (6.3-8.2) 02/01/17 07:33 Albumin 3.3 g/dL (3.9-5) L 02/01/17 07:33 Albumin/Globulin Ratio 1.1 % 02/01/17 07:33 Triglycerides 242 mg/dL (2-149) H 01/30/17 05:59 Cholesterol 214 mg/dL (50-199) H 01/30/17 05:59 LDL Cholesterol Direct 126 mg/dL (50-130) 01/30/17 05:59 HDL Cholesterol 40 mg/dL (40-59) 01/30/17 05:59 Cholesterol/HDL Ratio 5.35 % 01/30/17 05:59 Urine Color Straw (Yellow) 01/31/17 22:15 Urine Turbidity Clear (Clear) 01/31/17 22:15 Urine pH 6.0 (5.0-7.0) 01/31/17 22:15 Ur Specific [place] 1.008 (1.003-1.030) 01/31/17 22:15 Urine Protein 100 mg/dl mg/dL (Negative) 01/31/17 22:15 Urine Glucose (UA) Neg mg/dL (Negative) 01/31/17 22:15 Urine Ketones Neg mg/dL (Negative) 01/31/17 22:15 Urine Blood Sm (Negative) 01/31/17 22:15 Urine Nitrite Neg (Negative) 01/31/17 22:15 Urine Bilirubin Neg (Negative) 01/31/17 22:15 Urine Urobilinogen < 2.0 mg/dL (<2.0) 01/31/17 22:15 Ur Leukocyte Esterase Neg (Negative) 01/31/17 22:15 Urine WBC (Auto) 2.0 /HPF (0.0-6.0) 01/31/17 22:15 Urine RBC (Auto) 1.0 /HPF (0.0-6.0) 01/31/17 22:15 U Epithel Cells (Auto) 2.0 /HPF (0-13.0) 01/31/17 22:15 Urine Osmolality 295 Mosm/kg 01/31/17 22:15 Urine Creatinine 48.2 mg/dL (0.1-20.0) H 01/31/17 22:15 Urine Microalbumin 33.2 mg/dL (0.1-34.0) 01/31/17 22:15 Microalb/Creat Ratio 688.7 ug/mg 01/31/17 22:15 Urine Sodium 81 mEq/L 01/31/17 22:15 Urine Total Protein 55 mg/dL (5-11.8) H 01/31/17 22:15
--- NOTE | 2017-02-03 15:05 | Progress Note ---
Assessment and Plan (1) Acute kidney failure Current Visit: Yes Status: Acute Qualifiers: Acute renal failure type: A Plan to address problem: Most likely due to ATN in the setting of hypertensive emergency, possible prerenal azotemia in the setting of IV diuresis may contribute. CR started improving. Cont to hold Lasix for today. microalbuminuria of ~600mg/g noted. Renal US reviewed. No hydronephrosis seen. Severely increased echogenecity on both sides suggesting medical renal disease. Avoid nephrotoxins, NSAIDs, IV contrast CR improving/good urine out put Will monitor electrolytes/renal parameters and make further recommendations (2) Hypertensive emergency Current Visit: Yes Status: Acute Plan to address problem: BP remained high. Increase Hydrazine to 100 mg TID (3) Pulmonary edema Current Visit: Yes Status: Acute Qualifiers: Chronicity: C Plan to address problem: Improved with IV diuresis and improved BP Subjective Date of service: 02/03/17 Principal diagnosis: accelerated HTN; elevated trop Interval history: SOB improved Objective - Exam Narrative Exam: General appearance: well-developed, well-nourished, appears stated age EENT: ATNC, PERRL, mucous membranes moist, Neck: no JVD, normal ROM Respiratory: Present: Clear to Auscultation, no wheezing Cardiology: regular, S1S2, no m/g/r Gastrointestinal: normal BS, non tender Integumentary: no rash, warm and dry Neurologic: no focal deficit, alert and oriented x3, strength 5/5, CN 3-12 intact Psychiatric: mood/affect appropriate, cooperative - Vital Signs Vital signs: Vital Signs - 12hr 02/03/17 02/03/17 02/03/17 04:19 06:03 10:00 Temperature 98.1 F Pulse Rate 82 Pulse Rate [ 75 From Monitor] Pulse Rate [ 82 Left Radial] Pulse Rate [ Right Radial] Respiratory 18 18 Rate Blood Pressure 136/88 Blood Pressure 136/88 [Left Arm] O2 Sat by Pulse 97 Oximetry 02/03/17 02/03/17 10:21 12:48 Temperature 97.8 F 98.8 F Pulse Rate Pulse Rate [ From Monitor] Pulse Rate [ 75 Left Radial] Pulse Rate [ 81 Right Radial] Respiratory 18 18 Rate Blood Pressure Blood Pressure 170/100 153/86 [Left Arm] O2 Sat by Pulse 100 75 L Oximetry - Lab 02/03/17 05:19 02/03/17 05:19 Most recent lab results Calcium 8.6 mg/dL (8.4-10.2) 02/03/17 05:19 Magnesium 1.90 mg/dL (1.7-2.3) 02/03/17 05:19 Urine Creatinine 48.2 mg/dL (0.1-20.0) H 01/31/17 22:15 Urine Sodium 81 mEq/L 01/31/17 22:15 Urine Total Protein 55 mg/dL (5-11.8) H 01/31/17 22:15
[2017-02-03] MEDS ORDERED: APRESOLINE PO SCH (17:25)
[2017-02-04] MEDS: APRESOLINE PO SCH (01:20)
[2017-02-04] MEDS: LEVAQUIN 750MG/150ML 750 MG/150 ML BAG IV SCH (09:21)
[2017-02-04] MEDS: COREG PO SCH (09:22)
[2017-02-04] MEDS: ASPIRIN PO SCH (09:22)
[2017-02-04] MEDS: LOVENOX SUB-Q SCH (09:23)
[2017-02-04] MEDS: CATAPRES PO SCH (09:27)
[2017-02-04] MEDS ORDERED: PROCARDIA XL PO SCH (10:00)
--- NOTE | 2017-02-04 10:24 | Progress Note ---
Assessment and Plan Assessment and plan: --Malignant hypertension; moderate control, continue current antihypertensives ,Patient is noncompliant and is refusing some medications Patient strongly counseled to adhere to the treatment plan, verbalized understanding --Acute kidney injury; creatinine trending down Probably secondary to vasomotor nephropathy, prerenal azotemia Hold Lasix, gentle hydration, neurology following, avoid nephrotoxic medication nephrology input appreciated, continue to monitor urine output, improviing --Mild elevation of cardiac troponins Coronary artery disease, heparin drip discontinued , continue Lovenox Aspirin beta blockers and nitroglycerin and pain medications, Stress test prior to discharge --Pulmonary edema Symptoms significantly improved, off Lasix --Diastolic congestive heart failure; Continue beta blockers, hold Lasix --DVT prophylaxis; patient is already on heparin drip Patient's condition treatment plan discussed in detail with the patient as well as the family member at the bedside Consults and recommendations noted and appreciated Hospitalist Physical - Constitutional Vitals: Temp Pulse Resp BP Pulse Ox 98.4 F 90 18 119/70 99 02/04/17 08:00 02/04/17 09:42 02/04/17 08:00 02/04/17 09:22 02/04/17 09:42 General appearance: Present: no acute distress, well-nourished Results - Labs CBC & Chem 7: 02/03/17 05:19 02/03/17 05:19 Labs: Laboratory Last Values WBC 10.6 K/mm3 (4.5-11.0) 02/03/17 05:19 RBC 4.08 M/mm3 (3.65-5.03) 02/03/17 05:19 Hgb 9.3 gm/dl (10.1-14.3) L 02/03/17 05:19 Hct 29.6 % (30.3-42.9) L 02/03/17 05:19 MCV 73 fl (79-97) L 02/03/17 05:19 MCH 23 pg (28-32) L 02/03/17 05:19 MCHC 31 % (30-34) 02/03/17 05:19 RDW 18.2 % (13.2-15.2) H 02/03/17 05:19 Plt Count 332 K/mm3 (140-440) 02/03/17 05:19 Lymph % (Auto) 17.3 % (13.4-35.0) 02/03/17 05:19 [place] % (Auto) 7.2 % (0.0-7.3) 02/03/17 05:19 Eos % (Auto) 2.0 % (0.0-4.3) 02/03/17 05:19 Baso % (Auto) 0.6 % (0.0-1.8) 02/03/17 05:19 Lymph # 1.8 K/mm3 (1.2-5.4) 02/03/17 05:19 [place] # 0.8 K/mm3 (0.0-0.8) 02/03/17 05:19 Eos # 0.2 K/mm3 (0.0-0.4) 02/03/17 05:19 Baso # 0.1 K/mm3 (0.0-0.1) 02/03/17 05:19 Add Manual Diff Complete 01/31/17 06:38 Total Counted 100 01/31/17 06:38 Seg Neutrophils % 72.9 % (40.0-70.0) H 02/03/17 05:19 Seg Neuts % (Manual) 73.0 % (40.0-70.0) H 01/31/17 06:38 Band Neutrophils % 7.0 % 01/31/17 06:38 Lymphocytes % (Manual) 12.0 % (13.4-35.0) L 01/31/17 06:38 Reactive Lymphs % (Man) 0 % 01/31/17 06:38 Monocytes % (Manual) 7.0 % (0.0-7.3) 01/31/17 06:38 Eosinophils % (Manual) 4.0 % (0.0-4.3) 01/30/17 03:10 Basophils % (Manual) 0 % (0.0-1.8) 01/30/17 03:10 Metamyelocytes % 1.0 % 01/31/17 06:38 Myelocytes % 0 % 01/31/17 06:38 Promyelocytes % 0 % 01/31/17 06:38 Blast Cells % 0 % 01/31/17 06:38 Nucleated RBC % Not Reportable 01/31/17 06:38 Seg Neutrophils # 7.7 K/mm3 (1.8-7.7) 02/03/17 05:19 Seg Neutrophils # Man 19.3 K/mm3 (1.8-7.7) H 01/31/17 06:38 Band Neutrophils # 1.9 K/mm3 01/31/17 06:38 Lymphocytes # (Manual) 3.2 K/mm3 (1.2-5.4) 01/31/17 06:38 Abs React Lymphs (Man) 0.0 K/mm3 01/31/17 06:38 Monocytes # (Manual) 1.9 K/mm3 (0.0-0.8) H 01/31/17 06:38 Eosinophils # (Manual) 0.0 K/mm3 (0.0-0.4) 01/31/17 06:38 Basophils # (Manual) 0.0 K/mm3 (0.0-0.1) 01/31/17 06:38 Metamyelocytes # 0.3 K/mm3 01/31/17 06:38 Myelocytes # 0.0 K/mm3 01/31/17 06:38 Promyelocytes # 0.0 K/mm3 01/31/17 06:38 Blast Cells # 0.0 K/mm3 01/31/17 06:38 WBC Morphology Not Reportable 01/31/17 06:38 Hypersegmented Neuts Not Reportable 01/31/17 06:38 Hyposegmented Neuts Not Reportable 01/31/17 06:38 Hypogranular Neuts Not Reportable 01/31/17 06:38 Smudge Cells Not Reportable 01/31/17 06:38 Toxic Granulation Not Reportable 01/31/17 06:38 Toxic Vacuolation Not Reportable 01/31/17 06:38 Dohle Bodies Not Reportable 01/31/17 06:38 Pelger-Huet Anomaly Not Reportable 01/31/17 06:38 Doreen Rods Not Reportable 01/31/17 06:38 Platelet Estimate Consistent w auto 01/31/17 06:38 Clumped Platelets Not Reportable 01/31/17 06:38 Plt Clumps, EDTA Not Reportable 01/31/17 06:38 Large Platelets Not Reportable 01/31/17 06:38 Giant Platelets Not Reportable 01/31/17 06:38 Platelet Satelliting Not Reportable 01/31/17 06:38 Plt Morphology Comment Not Reportable 01/31/17 06:38 RBC Morphology Not Reportable 01/31/17 06:38 Dimorphic RBCs Not Reportable 01/31/17 06:38 Polychromasia Not Reportable 01/31/17 06:38 Hypochromasia 1+ 01/31/17 06:38 Poikilocytosis Not Reportable 01/31/17 06:38 Anisocytosis 1+ 01/31/17 06:38 Microcytosis Not Reportable 01/31/17 06:38 Macrocytosis Not Reportable 01/31/17 06:38 Spherocytes Not Reportable 01/31/17 06:38 Pappenheimer Bodies Not Reportable 01/31/17 06:38 Sickle Cells Not Reportable 01/31/17 06:38 Target Cells Not Reportable 01/31/17 06:38 Tear Drop Cells Not Reportable 01/31/17 06:38 Ovalocytes Few 01/31/17 06:38 Helmet Cells Not Reportable 01/31/17 06:38 [place] Bodies Not Reportable 01/31/17 06:38 [place] Rings Not Reportable 01/31/17 06:38 Trace Cells Few 01/31/17 06:38 Bite Cells Not Reportable 01/31/17 06:38 Crenated Cell Not Reportable 01/31/17 06:38 Elliptocytes Few 01/31/17 06:38 Acanthocytes (Spur) Not Reportable 01/31/17 06:38 Rouleaux Not Reportable 01/31/17 06:38 Hemoglobin C Crystals Not Reportable 01/31/17 06:38 Schistocytes Not Reportable 01/31/17 06:38 Malaria parasites Not Reportable 01/31/17 06:38 Franky Bodies Not Reportable 01/31/17 06:38 Hem Pathologist Commnt No 01/31/17 06:38 PT 13.3 Sec. (12.2-14.9) 01/30/17 13:31 INR 1.02 (0.87-1.13) 01/30/17 13:31 APTT 32.8 Sec. (24.2-36.6) 01/30/17 13:31 Heparin Anti-Xa Level 0.38 U.I./ml (0.3-0.7) 02/02/17 08:12 Sodium 138 mmol/L (137-145) 02/03/17 05:19 Potassium 3.6 mmol/L (3.6-5.0) 02/03/17 05:19 Chloride 99.0 mmol/L (98-107) 02/03/17 05:19 Carbon Dioxide 22 mmol/L (22-30) 02/03/17 05:19 Anion Gap 21 mmol/L 02/03/17 05:19 BUN 37 mg/dL (7-17) H 02/03/17 05:19 Creatinine 2.6 mg/dL (0.7-1.2) H 02/03/17 05:19 Estimated GFR 24 ml/min 02/03/17 05:19 BUN/Creatinine Ratio 14.23 % 02/03/17 05:19 Glucose 119 mg/dL (65-100) H 02/03/17 05:19 Calcium 8.6 mg/dL (8.4-10.2) 02/03/17 05:19 Magnesium 1.90 mg/dL (1.7-2.3) 02/03/17 05:19 Total Bilirubin 0.20 mg/dL (0.1-1.2) 02/01/17 07:33 AST 10 units/L (5-40) 02/01/17 07:33 ALT 8 units/L (7-56) 02/01/17 07:33 Alkaline Phosphatase 61 units/L (35-129) 02/01/17 07:33 Total Creatine Kinase 160 units/L (30-135) H 01/30/17 13:31 CK-MB (CK-2) 4.7 ng/mL (0.0-4.0) H 01/30/17 13:31 CK-MB (CK-2) Rel Index 2.9 (0-4) 01/30/17 13:31 Troponin T 0.080 ng/mL (0.00-0.029) H D 01/30/17 13:31 NT-Pro-B Natriuret Pep 847.2 pg/mL (0-450) H 01/30/17 03:10 Total Protein 6.4 g/dL (6.3-8.2) 02/01/17 07:33 Albumin 3.3 g/dL (3.9-5) L 02/01/17 07:33 Albumin/Globulin Ratio 1.1 % 02/01/17 07:33 Triglycerides 242 mg/dL (2-149) H 01/30/17 05:59 Cholesterol 214 mg/dL (50-199) H 01/30/17 05:59 LDL Cholesterol Direct 126 mg/dL (50-130) 01/30/17 05:59 HDL Cholesterol 40 mg/dL (40-59) 01/30/17 05:59 Cholesterol/HDL Ratio 5.35 % 01/30/17 05:59 Urine Color Straw (Yellow) 01/31/17 22:15 Urine Turbidity Clear (Clear) 01/31/17 22:15 Urine pH 6.0 (5.0-7.0) 01/31/17 22:15 Ur Specific [place] 1.008 (1.003-1.030) 01/31/17 22:15 Urine Protein 100 mg/dl mg/dL (Negative) 01/31/17 22:15 Urine Glucose (UA) Neg mg/dL (Negative) 01/31/17 22:15 Urine Ketones Neg mg/dL (Negative) 01/31/17 22:15 Urine Blood Sm (Negative) 01/31/17 22:15 Urine Nitrite Neg (Negative) 01/31/17 22:15 Urine Bilirubin Neg (Negative) 01/31/17 22:15 Urine Urobilinogen < 2.0 mg/dL (<2.0) 01/31/17 22:15 Ur Leukocyte Esterase Neg (Negative) 01/31/17 22:15 Urine WBC (Auto) 2.0 /HPF (0.0-6.0) 01/31/17 22:15 Urine RBC (Auto) 1.0 /HPF (0.0-6.0) 01/31/17 22:15 U Epithel Cells (Auto) 2.0 /HPF (0-13.0) 01/31/17 22:15 Urine Osmolality 295 Mosm/kg 01/31/17 22:15 Urine Creatinine 48.2 mg/dL (0.1-20.0) H 01/31/17 22:15 Urine Microalbumin 33.2 mg/dL (0.1-34.0) 01/31/17 22:15 Microalb/Creat Ratio 688.7 ug/mg 01/31/17 22:15 Urine Sodium 81 mEq/L 01/31/17 22:15 Urine Total Protein 55 mg/dL (5-11.8) H 01/31/17 22:15
--- NOTE | 2017-02-04 12:39 | Progress Note ---
Assessment and Plan Assessment: Flash pulmonary edema 2/2 to hypertensive crisis - resolved. Hypertensive urgency - improving. Elevated troponin - mildly elevated and flat with normal CK/MB; ECG with NAF; pt denies chest pain; nonspecific in setting of SABRA and hypertensive urgency. SABRA - improving. Mild to moderate MR Anemia - stable. Plan: Currently stable cardiac status. Pt may discharge home from cardiology standpoint. Will consider lexiscan MPI stress test as OP. Follow up in our office with Genet Villagomez NP, within 2 weeks of hospital discharge ([phone]). The patient has been seen in conjunction with Dr. Cuevas who agrees with the assessment and plan of care. Subjective Date of service: 02/04/17 Principal diagnosis: accelerated HTN; elevated trop Interval history: Pt resting in bed. Denies any complaints. VSS. Objective Last Vital Signs Temp 98.4 F 02/04/17 08:00 Pulse 90 02/04/17 09:42 Resp 18 02/04/17 08:00 BP 119/70 02/04/17 09:22 Pulse Ox 99 02/04/17 09:42 - Physical Examination General: Appears Well Neck: Positive: neck supple Cardiac: Positive: Reg Rate and Rhythm, S1/S2 Lungs: Positive: Normal Exam, clear to auscultation, Normal Breath Sounds Neuro: Positive: Grossly Intact, Cranial Nerve 2-12 Intact Abdomen: Positive: Unremarkable, Soft, Active Bowel Sounds. Negative: Tender Skin: Positive: Clear. Negative: Rash, Wound Musculoskeletal: No Fluid Collection, No Pain, Normal Range of Motion Extremities: Present: upper extr. pulses, lower extr. pulses. Absent: edema - Imaging and Cardiology EKG: image reviewed - Telemetry EKG Rhythm: Sinus Rhythm
--- NOTE | 2017-02-04 13:02 | Progress Note ---
Assessment and Plan (1) Acute kidney failure Current Visit: Yes Status: Acute Qualifiers: Acute renal failure type: A Plan to address problem: Most likely due to ATN in the setting of hypertensive emergency, possible prerenal azotemia in the setting of IV diuresis may contribute. CR started improving. Resume maintenance lasix PO upon discharge at 40 mg daily. microalbuminuria of ~600mg/g noted. Renal US reviewed. No hydronephrosis seen. Severely increased echogenecity on both sides suggesting medical renal disease. Avoid nephrotoxins, NSAIDs, IV contrast CR improving/good urine out put F/u in 1-2 weeks in office (2) Hypertensive emergency Current Visit: Yes Status: Acute Plan to address problem: BP remained high. Increased Hydrazine to 100 mg TID on 02/03 BP excellent today (3) Pulmonary edema Current Visit: Yes Status: Acute Qualifiers: Chronicity: C Plan to address problem: Improved with IV diuresis and improved BP Subjective Date of service: 02/04/17 Principal diagnosis: accelerated HTN; elevated trop Interval history: Feels better, SOB/edema improved Objective - Exam Narrative Exam: General appearance: well-developed, well-nourished, appears stated age EENT: ATNC, PERRL, mucous membranes moist, Neck: no JVD, normal ROM Respiratory: Present: Clear to Auscultation, no wheezing Cardiology: regular, S1S2, no m/g/r Gastrointestinal: normal BS, non tender Integumentary: no rash, warm and dry Neurologic: no focal deficit, alert and oriented x3, strength 5/5, CN 3-12 intact Psychiatric: mood/affect appropriate, cooperative - Vital Signs Vital signs: Vital Signs - 12hr 02/04/17 02/04/17 02/04/17 05:42 08:00 09:22 Temperature 98.7 F 98.4 F Pulse Rate 90 Pulse Rate [ 88 89 From Monitor] Respiratory 20 18 Rate Blood Pressure 119/70 Blood Pressure 122/70 119/71 [Right Radial Artery] O2 Sat by Pulse 98 98 Oximetry 02/04/17 09:42 Temperature Pulse Rate Pulse Rate [ 90 From Monitor] Respiratory Rate Blood Pressure Blood Pressure [Right Radial Artery] O2 Sat by Pulse 99 Oximetry - Lab 02/03/17 05:19 02/03/17 05:19 Most recent lab results Calcium 8.6 mg/dL (8.4-10.2) 02/03/17 05:19 Magnesium 1.90 mg/dL (1.7-2.3) 02/03/17 05:19 Urine Creatinine 48.2 mg/dL (0.1-20.0) H 01/31/17 22:15 Urine Sodium 81 mEq/L 01/31/17 22:15 Urine Total Protein 55 mg/dL (5-11.8) H 01/31/17 22:15
[2017-02-04 13:55] VITALS: BP 119/81
--- NOTE | 2017-02-04 14:14 | Discharge Summary ---
Providers - Providers Date of Admission: 01/30/17 05:34 Attending physician: CYNTHIA HANDLEY MD 01/31/17 11:00 Consult to Physician [CONS] Routine Consulting Provider: JACQUE STEVENS Reason For Exam: Acute Renal Failure Place consult to:: Dr. Stevens Notified:: Lucia DAVIES Phone number called:: Was contact made?: Yes If yes, spoke with:: [facility] Time called:: 11:30 Primary care physician: [employer] Hospitalization Condition: Stable Hospital course: --Malignant hypertension; moderate control, continue current antihypertensives ,Patient is noncompliant and is refusing some medications Patient strongly counseled to adhere to the treatment plan, verbalized understanding --Acute kidney injury; creatinine trending down Probably secondary to vasomotor nephropathy, prerenal azotemia Hold Lasix, gentle hydration, neurology following, avoid nephrotoxic medication nephrology input appreciated, continue to monitor urine output, improviing --Mild elevation of cardiac troponins Coronary artery disease, heparin drip discontinued , continue Lovenox Aspirin beta blockers and nitroglycerin and pain medications, Stress test prior to discharge --Pulmonary edema Symptoms significantly improved, off Lasix --Diastolic congestive heart failure; Continue beta blockers, hold Lasix --DVT prophylaxis; patient is already on heparin drip Patient's condition treatment plan discussed in detail with the patient as well as the family member at the bedside Consults and recommendations noted and appreciated Disposition: DISCHARGED TO HOME OR SELFCARE Time spent for discharge: 35 minutes Core Measure Documentation - Palliative Care Palliative Care/ Comfort Measures: Not Applicable - Core Measures Any of the following diagnoses?: heart failure, none - Heart Failure Discharge Requirements CARI/ARB for LVSD if EF <40%: Yes Beta kat at discharge: Yes Exam - Constitutional Vitals: Temp Pulse Resp BP Pulse Ox 98.2 F 80 18 119/81 99 02/04/17 12:00 02/04/17 12:00 02/04/17 12:00 02/04/17 12:00 02/04/17 09:42 General appearance: Present: no acute distress, well-nourished - EENT Eyes: Present: PERRL ENT: hearing intact, clear oral mucosa - Neck Neck: Present: supple, normal ROM - Respiratory Respiratory effort: normal Respiratory: bilateral: CTA - Cardiovascular Heart Sounds: Present: S1 & S2. Absent: rub, click - Extremities Extremities: pulses symmetrical, No edema Peripheral Pulses: within normal limits - Abdominal General gastrointestinal: Present: soft, non-tender, non-distended, normal bowel sounds Female genitourinary: Present: normal - Integumentary Integumentary: Present: clear, warm, dry - Musculoskeletal Musculoskeletal: gait normal, strength equal bilaterally - Psychiatric Psychiatric: appropriate mood/affect, intact judgment & insight - Neurologic Neurologic: CNII-XII intact, moves all extremities Plan Follow up with: PRIMARY CARE, [Primary Care Provider] - 3-5 Days SALLY WATKINS MD [Staff Physician] - 7 Days Prescriptions: hydrALAZINE [Apresoline TAB] 100 mg PO Q8H #90 tab NIFEdipine XL [Procardia Xl] 60 mg PO QDAY #30 tablet
[2017-02-05] MEDS ORDERED: LASIX PO SCH (06:00)
== END 2017-02-04 15:31 | disposition home or self-care (01) | DRG 291 ==
LOC: ED 02:56 → CC1 05:34 → 4A 11:07
PROVIDERS: ADMIT Internal Medicine; ATTEND Internal Medicine
PROC: 5A09457 Assistance with Respiratory Ventilation, 24-96 Consecutive Hours, Continuous Positive Airway Pressure (ICD-10-PCS; principal; 2017-01-30)
DX: I50.33 Acute on chronic diastolic (congestive) heart failure (principal); N17.0 Acute kidney failure with tubular necrosis; J18.9 Pneumonia, unspecified organism; J96.00 Acute respiratory failure, unspecified whether with hypoxia or hypercapnia; J81.1 Chronic pulmonary edema; I16.1 Hypertensive emergency; J44.0 Chronic obstructive pulmonary disease with (acute) lower respiratory infection; D72.829 Elevated white blood cell count, unspecified; D47.3 Essential (hemorrhagic) thrombocythemia; D64.9 Anemia, unspecified; Z91.19 Patient's noncompliance with other medical treatment and regimen; Z82.49 Family history of ischemic heart disease and other diseases of the circulatory system; Z98.51 Tubal ligation status; I11.0 Hypertensive heart disease with heart failure; I34.0 Nonrheumatic mitral (valve) insufficiency; Z83.3 Family history of diabetes mellitus; I25.10 Atherosclerotic heart disease of native coronary artery without angina pectoris; Z71.89 Other specified counseling
CPT/HCPCS: 36415; 71010; 76770; 80048; 80053; 80061; 81001; 82043; 82550; 82553; 83735; 83880; 83935; 84156; 84300; 84484; 85007; 85014; 85018; 85025; 85049; 85520; 85610; 85730; 87040; 93005; 93010; 93306; 94760; 96365; 96367; 96372; 96375; J0360; J0456; J0696; J1644; J1650; J1940; J1956; J2405; J3480; J7030; J7050